=== PATIENT | male | born 1990 | race Caucasian/White ===

== ENCOUNTER → 2021-11-14 10:25 | Outpatient (BNVA) | payer BC, MEDICAID, SELFPAY | PROVIDERS: Family Provider Nurse Practitioner Family; Visit Provider Family Medicine | DX: Z76.89 Persons encountering health services in other specified circumstances (principal); G89.29 Other chronic pain; R10.9 Unspecified abdominal pain; K21.9 Gastro-esophageal reflux disease without esophagitis; F41.1 Generalized anxiety disorder; F41.0 Panic disorder [episodic paroxysmal anxiety] | CPT/HCPCS: 80053; 80061; 83036; 84443; 85025; 86140 ==

== ENCOUNTER 2021-11-16 08:08 | Emergency (ER) | payer BC, MEDICAID, SELFPAY ==
[2021-11-16 08:18] VITALS: BP 138/83; PULSE 69; RESP 14; TEMP 36.7; O2SAT 99; BMI 34.5
[2021-11-16 09:39] LABS: Basophils % 0.7 %; Eosinophils # 0.1 10^3/uL (0.0-0.8); Eosinophils % 1.1 %; Hematocrit 46.4 % (42.0-52.0); Hemoglobin 15.5 g/dL (11.7-16.6); Lymphocytes # 1.3 10^3/uL (0.8-4.8); Lymphocytes % 20.7 %; Mean Corpuscular HGB Conc 33.4 g/dL (30.0-36.0); Mean Corpuscular Hemoglobin 29.8 pg (28.0-34.0); Mean Corpuscular Volume 89.2 fl (80-94); Mean Platelet Volume 9.9 fL (7.4-10.4); Monocytes # 0.5 10^3/uL (0.2-0.9); Monocytes % 8.8 %; Neutrophils # 4.19 10^3/uL (1.8-7.7); Neutrophils % 68.4 %; Nucleated Red Blood Cells % 0 %; Platelet Count 242 10^3/cmm (130-400); Red Cell Distribution Width 12.3 % (12.1-15.1); White Blood Count 6.1 10^3/uL (4.0-10.0)
[2021-11-16 09:55] LABS: Alanine Aminotransferase 43 U/L (0-41); Albumin Level 4.7 g/dL (3.5-5.2); Alkaline Phosphatase 87 U/L (40-130); Anion Gap 16.1 (5-19); Aspartate Amino Transferase 24 U/L (0-40); Blood Urea Nitrogen 9 mg/dL (6-20); Calcium 10.1 mg/dL (8.5-10.5); Carbon Dioxide 24 mmol/L (22-29); Chloride 104 mmol/L (98-107); Globulin 2.6 g/dL (1.3-4.6); Glomerular Filtration Rate 88.3 mL/min (90-130); Glucose 90 mg/dL (65-115); Osmolality Calculated 288 mOsm/kg (285-295); Potassium 4.1 mmol/L (3.5-5.1); Sodium 140 mmol/L (136-145); Total Bilirubin 0.8 mg/dL (0.15-1.2); Total Protein 7.3 g/dL (6.6-8.7)
[2021-11-16 11:21] LABS: Add Urine Microscopic? NO; Charge for UA Resulting for Rev
--- NOTE | 2021-11-16 11:21 | ED_ITS ---
HPI - Dizziness General: Chief Complaint: Dizziness Stated Complaint: Weakness, Dizziness, N/V Time Seen by Provider: 11/16/21 08:15 Source: patient Mode of arrival: ambulatory History of Present Illness: HPI Narrative: 31-year-old male presents emergency room lightheadedness dizziness generally not feeling well. He felt very weak with nausea and vomiting started bupropion and escitalopram yesterday and this began suddenly after starting to take medications. His new medications to begin BuSpar buspirone 5 mg 3 times daily and escitalopram 5 mg daily. Denies any dysuria and frequency abdominal pain chest pain or shortness of breath. No falls no trauma. MD elicited complaint: dizziness and lightheadedness Onset (ago): hour(s) Timing: sudden onset Severity: moderate Context: change in medication History of similar symptoms: No Exacerbating factors: nothing Relieving factors: nothing Associated symptoms: Reports malaise and nausea; Denies change in hearing, chest pain, chills, cough, diaphoresis, ear discharge, ear pressure, fevers/chills, headache(s), nasal congestion, palpitations, rash, short of breath, syncope, tinnitus, vomiting or weakness Associated neuro symptoms: Deny confusion, difficulty speaking, dysphagia, diplopia, extremity weakness, facial numbness, facial weakness, gait changes, numbness in extremities or visual changes Review of Systems Const: Reports: malaise; Denies: fever(s), chills, fatigue or diaphoresis ENMT: Denies: throat pain, ear discharge, change in hearing, tinnitus or nasal congestion Card: Denies: chest pain, palpitations or syncope Resp: Denies: dyspnea, productive cough or non-productive cough GI: Reports: nausea; Denies: abdominal pain, vomiting or dysphagia : Denies: flank pain, difficulty urinating, dysuria, urinary frequency or ur inary urgency Musc: Denies: neck pain or back pain Skin/Breast: Denies: rash or pruritus Neuro: Denies: headache(s), numbness in extremities or confusion PFSH ED PFSH: Medical History Gastroesophageal reflux disease Nausea and vomiting Symptom of blood in vomit Family History Grandmother CAD (coronary artery disease) Cancer lung Diabetes Grandfather CAD (coronary artery disease) Cancer Lung disease Stroke Suicide Denies family history of Clotting disorder Dementia Hyperlipidemia Psychiatric illness Chronic kidney disease (CKD) Anesthesia complication Bleeding disorder Family history of premature coronary artery disease Hypertension Social History Smoking and tobacco status: never smoked Physical Exam Const: COMMON NORMALS: no acute distress GENERAL APPEARANCE: cooperative and comfortable ORIENTATION/CONSCIOUSNESS: Yes awake, Yes oriented to person, Yes oriented to place and Yes oriented to time HENMT: COMMON NORMALS: normocephalic, atraumatic, external ears normal, EAC's normal, TM's normal bilaterally and Normal nasal mucous membranes and turbinates present HEAD & SCALP: normocephalic and atraumatic NOSE: Normal nasal mucous membranes and turbinates present EXTERNAL EAR: Yes external ears normal EXTERNAL AUDITORY CANAL: EAC's normal TYMPANIC MEMBRANE: TM's normal bilaterally Eye: COMMON NORMALS: Equal, round and reactive pupils present, EOMs intact bilaterally, conjunctivae normal and no scleral icterus CONJUNCTIVA: Yes conjunctivae normal PUPIL: Yes Equal, round and reactive pupils present Lymph: LYMPHATIC: no lymphadenopathy noted and no lymphedema noted Resp: COMMON NORMALS: normal respiratory effort, No retractions, No use of accessory muscles and clear to auscultation bilaterally AUSCULTATION: clear to auscultation bilaterally Cardio: COMMON NORMALS: regular rate, regular rhythm and No murmurs present (Cardio) RATE: regular rate RHYTHM: regular rhythm GI: COMMON NORMALS: Soft to palpation and No hepatosplenomegaly present AUS CULTATION: Yes normoactive bowel sounds PALPATION: Yes Soft to palpation, No Tenderness to palpation present (GI), No Guarding due to palpation present (GI) and Yes No hepatosplenomegaly present Extremity: COMMON NORMALS: normal to inspection, capillary refill normal, no clubbing, cyanosis or edema, no calf tenderness and no pedal edema Neuro: SENSORIUM/ORIENTATION: Yes oriented to person, Yes oriented to place and Yes oriented to time Skin: COMMON NORMALS: no rashes or lesions noted GENERAL SKIN EXAM: no rashes or lesions noted Course Vital Signs: Vital signs: Vital Signs Temperature 98.2 F 11/16/21 12:25 Pulse Rate 68 11/16/21 12:25 Respiratory Rate 16 11/16/21 12:25 Blood Pressure 132/86 11/16/21 12:25 Pulse Oximetry 96 11/16/21 12:25 Oxygen Delivery Me thod 11/16/21 11:58 MDM - Dizziness Medical Decision Making Labs reviewed unremarkable exam unremarkable. Suspect his side effects of medication some decrease his medications to half tablet 3 times daily and the buspirone half tablet daily and escitalopram after 1 week increase to full tablet follow-up with primary care Medical Records I reviewed the patient's medical records. Lab Data I reviewed the patient's lab results. : 11/16/21 09:18 11/16/21 09:18 Laboratory Results WBC 6.1 10^3/uL (4.0-10.0) 11/16/21 09:18 RBC 5.20 10^6/uL (4.1-5.3) 11/16/21 09:18 Hgb 15.5 g/dL (11.7-16.6) 11/16/21 09:18 Hct 46.4 % (42.0-52.0) 11/16/21 09:18 MCV 89.2 fl (80-94) 11/16/21 09:18 MCH 29.8 pg (28.0-34.0) 11/16/21 09:18 MCHC 33.4 g/dL (30.0-36.0) 11/16/21 09:18 RDW 12.3 % (12.1-15.1) 11/16/21 09:18 Plt Count 242 10^3/cmm (130-400) 11/16/21 09:18 MPV 9.9 fL (7.4-10.4) 11/16/21 09:18 Neut % (Auto) 68.4 % 11/16/21 09:18 Lymph % (Auto) 20.7 % 11/16/21 09:18 [place] % (Auto) 8.8 % 11/16/21 09:18 Eos % (Auto) 1.1 % 11/16/21 09:18 Baso % (Auto) 0.7 % 11/16/21 09:18 Neut # (Auto) 4.19 10^3/uL (1.8-7.7) 11/16/21 09:18 Lymph # (Auto) 1.3 10^3/uL (0.8-4.8) 11/16/21 09:18 [place] # (Auto) 0.5 10^3/uL (0.2-0.9) 11/16/21 09:18 Eos # (Auto) 0.1 10^3/uL (0.0-0.8) 11/16/21 09:18 Baso # (Auto) 0.0 10^3/uL (0.0-0.1) 11/16/21 09:18 Nucleated RBC % (auto) 0 % 11/16/21 09:18 Nucleated RBCs # 0.0 /100WBC 11/16/21 09:18 Sodium 140 mmol/L (136-145) 11/16/21 09:18 Potassium 4.1 mmol/L (3.5-5.1) 11/16/21 09:18 Chloride 104 mmol/L (98-107) 11/16/21 09:18 Carbon Dioxide 24 mmol/L (22-29) 11/16/21 09:18 Anion Gap 16.1 (5-19) 11/16/21 09:18 BUN 9 mg/dL (6-20) 11/16/21 09:18 Creatinine 1.0 mg/dL (0.7-1.2) 11/16/21 09:18 GFR Calculation 88.3 mL/min (90-130) L 11/16/21 09:18 Glucose 90 mg/dL (65-115) 11/16/21 09:18 Calculated Osmolality 288 mOsm/kg (285-295) 11/16/21 09:18 Calcium 10.1 mg/dL (8.5-10.5) 11/16/21 09:18 Total Bilirubin 0.8 mg/dL (0.15-1.2) 11/16/21 09:18 AST 24 U/L (0-40) 11/16/21 09:18 ALT 43 U/L (0-41) H 11/16/21 09:18 Alkaline Phosphatase 87 U/L (40-130) 11/16/21 09:18 Total Protein 7.3 g/dL (6.6-8.7) 11/16/21 09:18 Albumin 4.7 g/dL (3.5-5.2) 11/16/21 09:18 Globulin 2.6 g/dL (1.3-4.6) 11/16/21 09:18 Urine Color Yellow (Yellow) 11/16/21 11:07 Urine Appearance Clear (CLEAR) 11/16/21 11:07 Urine pH 9 (5-7) H 11/16/21 11:07 Ur Specific [employer] [place] 1.015 (1.005-1.030) 11/16/21 11:07 Urine Protein Neg (Negative) 11/16/21 11:07 Urine Glucose (UA) Norm (Normal) 11/16/21 11:07 Urine Ketones 3+ (Negative) H 11/16/21 11:07 Urine Blood Neg (Negative) 11/16/21 11:07 Urine Nitrate Negative (Negative) 11/16/21 11:07 Urine Bilirubin Neg (Negative) 11/16/21 11:07 Prot Sulfosalicylic Acd Negative (Negative) 11/16/21 11:07 Urine Urobilinogen 1 mg/dL (Negative) H 11/16/21 11:07 Ur Leukocyte Esterase Negative (Negative) 11/16/21 11:07 Discharge Plan Discharge Patient Disposition: Home Clinical Impression: Medication side effect Condition: Stable Prescriptions: New ondansetron HCl 4 mg tablet 4 mg PO Q6H PRN (Reason: nausea and vomiting) Qty: 20 0RF No Action omeprazole 20 mg tablet,delayed release (DR/EC) 20 mg PO DAILY Qty: 30 3RF ondansetron 4 mg tablet,disintegrating 4 mg PO Q8H PRN (Reason: nausea and vomiting) Qty: 5 0RF buspirone 5 mg tablet 5 mg PO TID Qty: 60 1RF pantoprazole 40 mg tablet,delayed release (DR/EC) 40 mg PO BID Qty: 60 2RF escitalopram oxalate [Lexapro] 5 mg tablet 5 mg PO DAILY Qty: 30 2RF tramadol 50 mg tablet 50 mg PO BID PRN (Reason: pain) 7 Days Qty: 14 0RF Discharge Orders: Discharge ED (Routine); Ordered 11/16/21 Ordered By: Arturo Lenz Referrals: Flaco Rucker DO [Primary Care Provider] - Discharge Diet: Usual diet Discharge Activity: Resume usual activity Activity Restrictions/Additional Instructions: Take half strength doses of the buspirone and the escitalopram for 6 to 7 days then increase to full strength doses. Follow-up with your primary care doctor within the next few weeks if symptoms persist otherwise follow-up as planned previously scheduled. 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
[2021-11-16 11:41] LABS: Blood Urine Neg (Negative); Glucose Urine UA Norm (Normal); Ketones Urine 3+ (Negative); Protein Urine Neg (Negative); Specific Gravity, Urine 1.015 (1.005-1.030); Urine Appearance Clear (CLEAR); Urine Color Yellow (Yellow); pH Urine 9 (5-7)
[2021-11-16 11:42] LABS: Bilirubin Urine Neg (Negative); Leukocyte Esterase Urine Negative (Negative); Nitrate Urine Negative (Negative); Sulfosalicylic Acid Urine Negative (Negative); Urobilinogen Urine 1 mg/dL (Negative)
[2021-11-16] MEDS: lactated ringers 1,000 ML 999 ML IV (11:50)
[2021-11-16] MEDS: ondansetron 2 mg/ML SDV 2 mL 4 MG IVP (11:50)
[2021-11-16 11:58] VITALS: BP 137/97; PULSE 59; RESP 17; O2SAT 100
[2021-11-16 12:25] VITALS: BP 132/86; PULSE 68; RESP 16; TEMP 36.8; O2SAT 96
== END 2021-11-16 12:34 | disposition home or self-care (01) ==
PROVIDERS: Emergency Provider Family Medicine; PCP Family Medicine
DX: R42 Dizziness and giddiness (principal); R53.1 Weakness; R11.2 Nausea with vomiting, unspecified; R53.81 Other malaise; T50.905A Adverse effect of unspecified drugs, medicaments and biological substances, initial encounter
CPT/HCPCS: 80053; 81003; 85025; 96374; 99284; J2405

== ENCOUNTER → 2022-06-30 14:45 | Outpatient (BNVA) | payer BC, MEDICAID, SELFPAY | PROVIDERS: PCP Family Medicine; Visit Provider Nurse Practitioner | DX: S99.921A Unspecified injury of right foot, initial encounter (principal); X58.XXXA Exposure to other specified factors, initial encounter | CPT/HCPCS: 73630 ==

== ENCOUNTER 2022-09-06 05:50 | Emergency (ER) | payer BC, SELFPAY ==
[2022-09-06 05:54] VITALS: PULSE 77; RESP 20; TEMP 37.2; O2SAT 98; BMI 31.1
--- NOTE | 2022-09-06 05:55 | ECG_ITS ---
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 Measurements Intervals [place] Rate: 67 P: 23 MN: 120 QRS: 22 QRSD: 110 T: 32 QT: 368 QTc: 390 Interpretive Statements SINUS RHYTHM No previous ECG available for comparison Electronically Signed On 09-06-2022 16:51:17 CDT by Terrell Reaves M.D. [id number]
[2022-09-06 05:57] VITALS: O2SAT 95
--- NOTE | 2022-09-06 05:57 | XRR_ITS ---
PROCEDURE INFORMATION: Exam: XR Chest Exam date and time: 09/06/2022 6:09 AM Age: 32 years old Clinical indication: Dyspnea; Additional info: Dyspnea/cough TECHNIQUE: Imaging protocol: Radiologic exam of the chest. Views: 1 view. COMPARISON: CR XR chest 1V [id number] 05/20/2018 2:26 PM FINDINGS: Lungs: Unremarkable. No consolidation. Pleural spaces: Unremarkable. No pleural effusion. No pneumothorax. Heart/Mediastinum: Unremarkable. No cardiomegaly. Bones/joints: Unremarkable. XR/XR chest 1V portable [id number] IMPRESSION: No acute findings.
--- NOTE | 2022-09-06 05:57 | W.ED.CHESTPA ---
HPI - Chest Pain General: Chief Complaint: Chest Pain Stated Complaint: cp Time Seen by Provider: 09/06/22 05:56 Source: patient Mode of arrival: ambulatory History of Present Illness: 32-year-old male presents to the emergency room complaining of chest pain intermittently for the last couple of days. Started to get worse yesterday around noon and is persisted. Intermittently comes in spasm-like episodes that can be reproduced with palpation on the chest. He denies any hematochezia or melena. He does report some nausea associated with it. He has no known cardiac history he has significant problems with reflux in the past he went to the point of having small amounts of hemoptysis in the past but its been sometime since he has had that none recently. He is on pantoprazole. He also uses THC oil regularly. MD complaint: chest discomfort Onset (ago): day(s) Timing of current episode: episodic Prior episodes: Yes Onset: during rest Pain location: left chest Pain radiation: back Severity: mild Quality: sharp Relieving factors: nothing Exacerbating factors: palpation Associated symptoms: Reports nausea; Deny abdominal pain, diaphoresis, dyspnea, fever(s), leg edema, palpitations, sense of impending doom, syncope or vomiting Treatment prior to arrival: none Review of Systems Const: Denies: fever(s) or diaphoresis ENMT: Denies: throat pain, ear or mastoid pain, nasal discharge or nasal congestion Card: Denies: palpitations or syncope Resp: Denies: dyspnea, productive cough or non-productive cough GI: Reports: nausea; Denies: abdominal pain or vomiting : Denies: flank pain, dysuria, urinary frequency or urinary urgency Musc: Reports: back pain; Denies: neck pain or extremity pain Skin/Breast: Denies: rash or pruritus Psych: Reports: anxiety PFSH ED PFSH: Medical History Gastroesophageal reflux disease Nausea and vomiting Symptom of blood in vomit Family History Grandmother CAD (coronary artery disease) Cancer lung Diabetes Grandfather CAD (coronary artery disease) Cancer Lung disease Stroke Suicide Denies family history of Clotting disorder Dementia Hyperlipidemia Psychiatric illness Chronic kidney disease (CKD) Anesthesia complication Bleeding disorder Family history of premature coronary artery disease Hypertension Social History Smoking and tobacco status: never smoked Smoking risk assessment/counseling performed?: No Alcohol intake: never Desire information about alcohol rehabilitation?: No Counseling given: No Substance/Drug Use: never Desire information about substance/drug rehabilitation?: No Counseling given: No Physical Exam Const: GENERAL APPEARANCE: cooperative and comfortable ORIENTATION/CONSCIOUSNESS: Yes awake, Yes oriented to person, Yes oriented to place and Yes oriented to time HENMT: COMMON NORMALS: normocephalic, atraumatic and hearing grossly normal bilaterally HEAD & SCALP: normocephalic and atraumatic Resp: COMMON NORMALS: normal respiratory effort, No retractions, No use of accessory muscles and clear to auscultation bilaterally AUSCULTATION: clear to auscultation bilaterally Cardio: COMMON NORMALS: regular rate, regular rhythm and No murmurs present (Cardio) RATE: regular rate RHYTHM: regular rhythm GI: COMMON NORMALS: Soft to palpation and No hepatosplenomegaly present AUSCULTATION: Yes normoactive bowel sounds PALPATION: Yes Soft to palpation, No Tenderness to palpation present (GI), No Guarding due to palpation present (GI) and Yes No hepatosplenomegaly present Extremity: COMMON NORMALS: normal to inspection, capillary refill normal, no clubbing, cyanosis or edema, no calf tenderness and no pedal edema Neuro: SENSORIUM/ORIENTATION: Yes oriented to person, Yes oriented to place and Yes oriented to time Skin: COMMON NORMALS: no rashes or lesions noted GENERAL SKIN EXAM: no rashes or lesions noted Course Vital Signs: Vital signs: Vital Signs Temperature 99.0 F 09/06/22 05:54 Pulse Rate 60 09/06/22 06:05 Respiratory Rate 20 H 09/06/22 05:54 Blood Pressure 129/73 09/06/22 06:05 Pulse Oximetry 98 09/06/22 06:05 Oxygen Delivery Me thod Room Air 09/06/22 06:05 MDM - Chest Pain Medical Decision Making Improvement with a GI cocktail. Reviewed labs and EKG no acute findings on EKG no ST elevation. Normal sinus rhythm. Patient admits to being stressed out recently. His symptoms sound more GI in nature he has not no significant cardiac risk factors. He has had this for several days EKG and troponin are negative. Discharge patient home add Carafate 1 every 6 hours as needed. Patient given handout information on reflux as well as appropriate diet modifications. Patient also confirmed he has been using THC oil. Number of the cannabis products can worsen GI symptoms. Recommend that he abstain from that completely. Follow-up with his primary care doctor return for worsening problems. Medical Records I reviewed the patient's medical records. Lab Data I reviewed the patient's lab results. 09/06/22 06:03 09/06/22 06:03 Laboratory Results WBC 6.9 10^3/uL (4.0-10.0) 09/06/22 06:03 RBC 4.86 10^6/uL (4.1-5.3) 09/06/22 06:03 Hgb 14.6 g/dL (11.7-16.6) 09/06/22 06:03 Hct 44.6 % (42.0-52.0) 09/06/22 06:03 MCV 91.8 fl (80-94) 09/06/22 06:03 MCH 30.0 pg (28.0-34.0) 09/06/22 06:03 MCHC 32.7 g/dL (30.0-36.0) 09/06/22 06:03 RDW 13.5 % (12.1-15.1) 09/06/22 06:03 Plt Count 221 10^3/cmm (130-400) 09/06/22 06:03 MPV 9.3 fL (7.4-10.4) 09/06/22 06:03 Neut % (Auto) 55.7 % 09/06/22 06:03 Lymph % (Auto) 30.2 % 09/06/22 06:03 [place] % (Auto) 8.8 % 09/06/22 06:03 Eos % (Auto) 4.3 % 09/06/22 06:03 Baso % (Auto) 0.7 % 09/06/22 06:03 Neut # (Auto) 3.84 10^3/uL (1.8-7.7) 09/06/22 06:03 Lymph # (Auto) 2.1 10^3/uL (0.8-4.8) 09/06/22 06:03 [place] # (Auto) 0.6 10^3/uL (0.2-0.9) 09/06/22 06:03 Eos # (Auto) 0.3 10^3/uL (0.0-0.8) 09/06/22 06:03 Baso # (Auto) 0.1 10^3/uL (0.0-0.1) 09/06/22 06:03 Nucleated RBC % (auto) 0 % 09/06/22 06:03 Nucleated RBCs # 0.0 /100WBC 09/06/22 06:03 Sodium 139 mmol/L (136-145) 09/06/22 06:03 Potassium 3.7 mmol/L (3.5-5.1) 09/06/22 06:03 Chloride 104 mmol/L (98-107) 09/06/22 06:03 Carbon Dioxide 26 mmol/L (22-29) 09/06/22 06:03 Anion Gap 12.7 (5-19) 09/06/22 06:03 BUN 14 mg/dL (6-20) 09/06/22 06:03 Creatinine 0.9 mg/dL (0.7-1.2) 09/06/22 06:03 GFR Calculation 99.1 mL/min (90-130) 09/06/22 06:03 Glucose 83 mg/dL (65-115) 09/06/22 06:03 Calculated Osmolality 288 mOsm/kg (285-295) 09/06/22 06:03 Calcium 9.4 mg/dL (8.5-10.5) 09/06/22 06:03 Total Bilirubin 0.5 mg/dL (0.15-1.2) 09/06/22 06:03 AST 20 U/L (0-40) 09/06/22 06:03 ALT 19 U/L (0-41) 09/06/22 06:03 Alkaline Phosphatase 73 U/L (40-130) 09/06/22 06:03 Troponin T Baseline 6 ng/L (0-15) 09/06/22 06:03 Total Protein 6.7 g/dL (6.6-8.7) 09/06/22 06:03 Albumin 4.4 g/dL (3.5-5.2) 09/06/22 06:03 Globulin 2.3 g/dL (1.3-4.6) 09/06/22 06:03 Discharge Plan Discharge Patient Disposition: Home Clinical Impression: Gastroesophageal reflux disease, Atypical chest pain Condition: Stable Prescriptions: New Carafate 1 gram tablet 1 g PO Q6H PRN (Reason: stomach upset) Qty: 40 0RF No Action THC oil PO escitalopram oxalate 20 mg tablet 20 mg PO DAILY Qty: 90 1RF buspirone 5 mg tablet 5 mg PO TID Qty: 90 2RF pantoprazole 40 mg tablet,delayed release (DR/EC) 40 mg PO BID Qty: 60 2RF quetiapine [Seroquel] 50 mg tablet 50 mg PO DAILY Qty: 30 2RF Discharge Orders: Discharge ED (Routine); Ordered 09/06/22 Ordered By: Arturo Lenz Referrals: Flaco Rucker DO [Primary Care Provider] - Discharge Diet: As Directed Discharge Activity: Resume usual activity Patient Instructions: Diet for Stomach Ulcers and Gastritis (ED), GERD (Gastroesophageal Reflux Disease) (ED), Opioid Safety, Pain Management Stand Alone Forms: Work/School Release Coding Level of Care Code ED Medicare Sales Executive for Mitzi Carrizales
[2022-09-06 06:05] VITALS: BP 129/73; PULSE 60; O2SAT 98
[2022-09-06 06:07] LABS: Basophils # 0.1 10^3/uL (0.0-0.1); Basophils % 0.7 %; Eosinophils # 0.3 10^3/uL (0.0-0.8); Eosinophils % 4.3 %; Hematocrit 44.6 % (42.0-52.0); Hemoglobin 14.6 g/dL (11.7-16.6); Lymphocytes # 2.1 10^3/uL (0.8-4.8); Lymphocytes % 30.2 %; Mean Corpuscular HGB Conc 32.7 g/dL (30.0-36.0); Mean Corpuscular Volume 91.8 fl (80-94); Mean Platelet Volume 9.3 fL (7.4-10.4); Monocytes # 0.6 10^3/uL (0.2-0.9); Monocytes % 8.8 %; Neutrophils # 3.84 10^3/uL (1.8-7.7); Neutrophils % 55.7 %; Nucleated Red Blood Cells % 0 %; Platelet Count 221 10^3/cmm (130-400); Red Blood Count 4.86 10^6/uL (4.1-5.3); Red Cell Distribution Width 13.5 % (12.1-15.1); White Blood Count 6.9 10^3/uL (4.0-10.0)
[2022-09-06] MEDS: alum-mag-hydroxide-sime 30 mL UDC PO (06:11)
[2022-09-06] MEDS: sucralfate 1 gm/10 mL Oral Liq UDC PO (06:11)
[2022-09-06 06:34] LABS: Alanine Aminotransferase 19 U/L (0-41); Albumin Level 4.4 g/dL (3.5-5.2); Alkaline Phosphatase 73 U/L (40-130); Anion Gap 12.7 (5-19); Aspartate Amino Transferase 20 U/L (0-40); Blood Urea Nitrogen 14 mg/dL (6-20); Calcium 9.4 mg/dL (8.5-10.5); Carbon Dioxide 26 mmol/L (22-29); Chloride 104 mmol/L (98-107); Creatinine Clr Calc Pharmacy 149.8757; Globulin 2.3 g/dL (1.3-4.6); Glomerular Filtration Rate 99.1 mL/min (90-130); Glucose 83 mg/dL (65-115); Osmolality Calculated 288 mOsm/kg (285-295); Potassium 3.7 mmol/L (3.5-5.1); Sodium 139 mmol/L (136-145); Total Bilirubin 0.5 mg/dL (0.15-1.2); Total Protein 6.7 g/dL (6.6-8.7)
[2022-09-06 06:35] LABS: Troponin(5th) Baseline 6 ng/L (0-15)
[2022-09-06 06:43] VITALS: BP 118/80; PULSE 86; RESP 20; O2SAT 99
[2022-09-06 06:44] VITALS: BP 118/80; PULSE 70; RESP 18; O2SAT 98
== END 2022-09-06 06:51 | disposition home or self-care (01) ==
PROVIDERS: Emergency Provider Family Medicine; PCP Family Medicine
DX: K21.9 Gastro-esophageal reflux disease without esophagitis (principal); R07.89 Other chest pain; Z79.899 Other long term (current) drug therapy
CPT/HCPCS: 71045; 80053; 84484; 85025; 93005; 99285

== ENCOUNTER → 2023-09-25 12:24 | Outpatient (BNVA) | payer SELFPAY | PROVIDERS: PCP Family Medicine; Visit Provider Family Medicine | DX: E55.9 Vitamin D deficiency, unspecified (principal); K52.9 Noninfective gastroenteritis and colitis, unspecified; K21.9 Gastro-esophageal reflux disease without esophagitis; R11.2 Nausea with vomiting, unspecified; F41.1 Generalized anxiety disorder; F41.0 Panic disorder [episodic paroxysmal anxiety] | CPT/HCPCS: 80053; 80061; 82306; 82533; 83036; 84443; 85025; 85651; 86003; 86008; 86140 ==

== ENCOUNTER 2023-09-26 06:58 | Emergency (ER) | payer SELFPAY ==
[2023-09-26 07:14] VITALS: BP 133/91; PULSE 78; RESP 18; TEMP 36.7; O2SAT 98
--- NOTE | 2023-09-26 07:41 | ED_ITS ---
HPI - Nausea/Vomiting/Diarrhea 2 General: Chief complaint: Nausea/Vomiting/Diarrhea Stated complaint: n/v weakness Time Seen by Provider: 09/26/23 07:01 History of Present Illness: 33-year-old [facility] and weakness. Had an episode of diarrhea this morning. He noticed some bright red blood in the emesis enough he says almost completely discolored in the toilet bowl. He denies any coffee-ground emesis denies any melena. He has not previously had significant upper GI bleed but has vomited blood in the past. The symptoms been going on for some time. He has seen Dr. Isaac yesterday in the office had lab work done. He will intermittently have appetite loss and early to some satiety. No recent medication changes medication list was reviewed. Does occasionally drink social amounts of alcohol, uses THC oil occasionally. He has not had any further hematemesis since the episode this morning. Labs from 09/24 reviewed. Associated nausea: Yes Associated symtoms: Reports nausea; Denies chest pain or dysuria Review of Systems 2 Const: Denies: fever(s) or chills Card: Denies: chest pain Resp: Denies: dyspnea GI: Reports: nausea, vomiting, hematemesis and diarrhea; Denies: abdominal pain, hematochezia or melena : Denies: dysuria, urinary frequency or urinary urgency Musc: Denies: neck pain or back pain Skin/Breast: Denies: rash PFSH ED 2 PFSH: Medical History Nausea and vomiting Symptom of blood in vomit Gastroesophageal reflux disease Family History Grandmother CAD (coronary artery disease) Cancer lung Diabetes Grandfather CAD (coronary artery disease) Cancer Lung disease Stroke Suicide Denies family history of Clotting disorder Dementia Hyperlipidemia Psychiatric illness Chronic kidney disease (CKD) Anesthesia complication Bleeding disorder Family history of premature coronary artery disease Hypertension Social History Smoking and tobacco/nicotine status: never used tobacco/nicotine Alcohol intake: never Substance/Drug Use: never Physical Exam 2 Const: GENERAL APPEARANCE: cooperative and comfortable O RIENTATION/CONSCIOUSNESS: Yes awake, Yes oriented to person, Yes oriented to place and Yes oriented to time HENMT: COMMON NORMALS: normocephalic, atraumatic and hearing grossly normal bilaterally HEAD & SCALP: normocephalic and atraumatic Resp: COMMON NORMALS: normal respiratory effort, No retractions, No use of accessory muscles and clear to auscultation bilaterally AUSCULTATION: clear to auscultation bilaterally Cardio: COMMON NORMALS: regular rate, regular rhythm and No murmurs present (Cardio) RATE: regular rate RHYTHM: regular rhythm GI: COMMON NORMALS: Soft to palpation and No hepatosplenomegaly present A USCULTATION: Yes normoactive bowel sounds PALPATION: Yes Soft to palpation, No Tenderness to palpation present (GI), No Guarding due to palpation present (GI) and Yes No hepatosplenomegaly present Extremity: COMMON NORMALS: normal to inspection, capillary refill normal, no clubbing, cyanosis or edema, no calf tenderness and no pedal edema Neuro: SENSORIUM/ORIENTATION: Yes oriented to person, Yes oriented to place and Yes oriented to time Skin: COMMON NORMALS: no rashes or lesions noted GENERAL SKIN EXAM: no rashes or lesions noted Course 2 Vital Signs: Vital signs: Vital Signs Temperature 98.1 F 09/26/23 07:14 Pulse Rate 71 09/26/23 09:47 Respiratory Rate 18 09/26/23 07:14 Blood Pressure 134/93 09/26/23 09:47 Pulse Oximetry 99 09/26/23 09:47 Oxygen Delivery Me thod Room Air 09/26/23 09:47 MDM - Nausea/Vomiting/Diarrhea Medical Decision Making Labs and imaging reviewed no evidence of acute bleeding labs hemoglobin stable BUN normal has not had any further hematemesis here. Will discharge [facility] continue pantoprazole add sucralfate have him follow-up with his primary care doctor needs referral for potential EGD. Medical Records I reviewed the patient's medical records. Lab Data I reviewed the patient's lab results. 09/26/23 07:39 09/26/23 07:39 Radiology Impressions Abdomen/Pelvis CT 09/26/23 07:46 IMPRESSION: 1. Mild hepatomegaly diffuse fatty infiltration of the liver. 2. Small esophageal hiatal hernia. Stomach is otherwise normal in appearance. Normal visualized proximal duodenum. 3. No hydronephrosis in either kidney. 4. Normal appendix 5. No other acute findings. Laboratory Results WBC 4.26 10^3/uL (3.29-11.43) 09/26/23 07:39 RBC 4.79 10^6/uL (3.85-5.65) 09/26/23 07:39 Hgb 14.60 g/dL (11.27-16.99) 09/26/23 07:39 Hct 44.6 % (37-53) 09/26/23 07:39 MCV 93.1 fl (82-101) 09/26/23 07:39 MCH 30.5 pg (27-33) 09/26/23 07:39 MCHC 32.7 g/dL (30-55) 09/26/23 07:39 RDW 13.1 % (12.1-15.1) 09/26/23 07:39 Plt Count 224 10^3/cmm (157-399) 09/26/23 07:39 MPV 10.0 fL (7.4-10.4) 09/26/23 07:39 Neut % (Auto) 48.4 % 09/26/23 07:39 Lymph % (Auto) 35.4 % 09/26/23 07:39 [place] % (Auto) 9.2 % 09/26/23 07:39 Eos % (Auto) 6.1 % 09/26/23 07:39 Baso % (Auto) 0.7 % 09/26/23 07:39 Neut # (Auto) 2.06 10^3/uL (1.8-7.7) 09/26/23 07:39 Lymph # (Auto) 1.5 10^3/uL (0.8-4.8) 09/26/23 07:39 [place] # (Auto) 0.4 10^3/uL (0.2-0.9) 09/26/23 07:39 Eos # (Auto) 0.3 10^3/uL (0.0-0.8) 09/26/23 07:39 Baso # (Auto) 0.0 10^3/uL (0.0-0.1) 09/26/23 07:39 Nucleated RBC % (auto) 0 % 09/26/23 07:39 Nucleated RBCs # 0.0 /100WBC 09/26/23 07:39 Sodium 142 mmol/L (136-145) 09/26/23 07:39 Potassium 4.6 mmol/L (3.5-5.1) 09/26/23 07:39 Chloride 108 mmol/L (98-107) H 09/26/23 07:39 Carbon Dioxide 22 mmol/L (22-29) 09/26/23 07:39 Anion Gap 16.6 (5-19) 09/26/23 07:39 BUN 10 mg/dL (6-20) 09/26/23 07:39 Creatinine 0.7 mg/dL (0.7-1.2) 09/26/23 07:39 GFR Calculation 131.5 mL/min (90-130) H 09/26/23 07:39 Glucose 102 mg/dL (65-115) 09/26/23 07:39 Calculated Osmolality 293 mOsm/kg (285-295) 09/26/23 07:39 Calcium 9.0 mg/dL (8.5-10.5) 09/26/23 07:39 Total Bilirubin 0.3 mg/dL (0.15-1.2) 09/26/23 07:39 AST 27 U/L (0-40) 09/26/23 07:39 ALT 31 U/L (0-41) 09/26/23 07:39 Alkaline Phosphatase 78 U/L (40-130) 09/26/23 07:39 Total Protein 7.1 g/dL (6.6-8.7) 09/26/23 07:39 Albumin 4.3 g/dL (3.5-5.2) 09/26/23 07:39 Globulin 2.8 g/dL (1.3-4.6) 09/26/23 07:39 Lipase 29 U/L (13-60) 09/26/23 07:39 Urine Color Yellow (Yellow) 09/26/23 08:18 Urine Appearance Clear (CLEAR) 09/26/23 08:18 Urine pH >=9.0 (5-7) A 09/26/23 08:18 Ur Specific [place] 1.037 (1.005-1.030) H 09/26/23 08:18 Urine Protein Negative (Negative) 09/26/23 08:18 Urine Glucose (UA) Negative (Normal) 09/26/23 08:18 Urine Ketones Negative (Negative) 09/26/23 08:18 Urine Blood Negative (Negative) 09/26/23 08:18 Urine Nitrate Negative (Negative) 09/26/23 08:18 Urine Bilirubin Negative (Negative) 09/26/23 08:18 Urine Urobilinogen 1.0 mg/dL (Negative) 09/26/23 08:18 Ur Leukocyte Esterase Negative (Negative) 09/26/23 08:18 Amorphous Sediment Not Reportable 09/26/23 08:18 All radiology interpretation(s) finalized by discharge Discharge Plan Discharge Patient Disposition: Home Clinical Impression: Symptom of blood in vomit, Gastroesophageal reflux disease, Dehydration, Chronic abdominal pain Condition: Stable Prescriptions: New sucralfate 1 gram tablet 1 g PO Q6H 28 Days Qty: 112 0RF No Action lorazepam 0.5 mg tablet 0.5 mg PO DAILY PRN (Reason: anxiety) Qty: 20 5RF buspirone 5 mg tablet 5 mg PO TID Seroquel 100 mg tablet 100 mg PO BEDTIME pantoprazole 40 mg tablet,delayed release (DR/EC) 40 mg PO BID escitalopram oxalate 20 mg tablet 20 mg PO DAILY Discharge Orders: Discharge ED (Routine); Ordered 09/26/23 Ordered By: Arturo Lenz Referrals: Flaco Rucker DO [Primary Care Provider] - Discharge Diet: As Directed Discharge Activity: Increase activity as tolerated Patient Instructions: Diet for Stomach Ulcers and Gastritis (ED), GERD (Gastroesophageal Reflux Disease) (ED), Abdominal Pain (ED), Opioid Safety, Pain Management Activity Restrictions/Additional Instructions: Thank you for choosing [facility] for your healthcare needs today. It is very important that you follow up as instructed or that you return to the Emergency Department should you have concerns or if your condition changes or worsens in any way. You were seen today with complaints of nausea vomiting with blood in the vomitus. There is no sign of active bleeding on the CT and your hemoglobin and other labs do not show evidence of acute bleeding. Recommend you continue your Protonix 1 pill twice a day add sucralfate 1 tablet 4 times a day. Case management make arrangements for you to follow-up with general surgery for an EGD Coding Level of Care Code ED Software Systems Analyst for Mitzi Carrizales
[2023-09-26] MEDS: ondansetron 2 mg/ML SDV 2 mL 4 MG IVP (07:42)
[2023-09-26] MEDS: sodium chloride 0.9% 1,000 ML 999 ML IV ×2 (07:42→08:36)
[2023-09-26 07:44] VITALS: BP 149/105; PULSE 77; O2SAT 96
--- NOTE | 2023-09-26 07:46 | CT_ITS ---
WS: [id number] CT ABDOMEN PELVIS TECHNIQUE: Contrast-enhanced CT of the abdomen and pelvis with coronal and sagittal reformatted image s. CLINICAL INFORMATION: Hematemesis COMPARISON: CT 2006 DLP: 1230.[address] scans at [facility] use at least one of these dose optimization techniques: automated e xposure control; mA and/or kV adjustment per patient size (includes targeted exams where dose is matc hed to clinical indication); or iterative reconstruction. FINDINGS: Diffuse fatty infiltration of the liver. Mild hepatomegaly. Normal spleen. Lung bases are well aerate d. Normal gallbladder. Small esophageal hiatal hernia. Stomach is normal in appearance. Fluid within the stomach. Normal-appearing proximal duodenum. Fatty atrophy of the pancreas. Normal portal vein an d splenic vein. Celiac and SMA are patent. Adrenal glands are normal. No hydronephrosis in either kidney. Normal renal parenchymal enhancement. Normal sigmoid colon. No evidence of small or large bowel obstruction. Normal appendix. Small fat-con taining umbilical hernia. No free fluid in the abdomen or pelvis. CT/CT abdomen pelvis w con* [id number] IMPRESSION: 1. Mild hepatomegaly diffuse fatty infiltration of the liver. 2. Small esophageal hiatal hernia. Stomach is otherwise normal in appearance. Normal visualized proximal duodenum. 3. No hydronephrosis in either kidney. 4. Normal appendix 5. No other acute findings.
[2023-09-26] MEDS: pantoprazole 40 mg SDV 80 MG IVP (07:48)
[2023-09-26 07:58] LABS: Basophils % 0.7 %; Eosinophils # 0.3 10^3/uL (0.0-0.8); Eosinophils % 6.1 %; Hematocrit 44.6 % (37-53); Lymphocytes # 1.5 10^3/uL (0.8-4.8); Lymphocytes % 35.4 %; Mean Corpuscular HGB Conc 32.7 g/dL (30-55); Mean Corpuscular Hemoglobin 30.5 pg (27-33); Mean Corpuscular Volume 93.1 fl (82-101); Monocytes # 0.4 10^3/uL (0.2-0.9); Monocytes % 9.2 %; Neutrophils # 2.06 10^3/uL (1.8-7.7); Neutrophils % 48.4 %; Nucleated Red Blood Cells % 0 %; Platelet Count 224 10^3/cmm (157-399); Red Blood Count 4.79 10^6/uL (3.85-5.65); Red Cell Distribution Width 13.1 % (12.1-15.1); White Blood Count 4.26 10^3/uL (3.29-11.43)
[2023-09-26 08:03] LABS: Alanine Aminotransferase 31 U/L (0-41); Albumin Level 4.3 g/dL (3.5-5.2); Alkaline Phosphatase 78 U/L (40-130); Blood Urea Nitrogen 10 mg/dL (6-20); Carbon Dioxide 22 mmol/L (22-29); Chloride 108 mmol/L (98-107); Creatinine Clr Calc Pharmacy 202.7175; Globulin 2.8 g/dL (1.3-4.6); Glomerular Filtration Rate 131.5 mL/min (90-130); Glucose 102 mg/dL (65-115); Lipase 29 U/L (13-60); Osmolality Calculated 293 mOsm/kg (285-295); Sodium 142 mmol/L (136-145); Total Bilirubin 0.3 mg/dL (0.15-1.2); Total Protein 7.1 g/dL (6.6-8.7)
[2023-09-26 08:12] LABS: Anion Gap 16.6 (5-19); Aspartate Amino Transferase 27 U/L (0-40); Potassium 4.6 mmol/L (3.5-5.1)
[2023-09-26] MEDS: iohexol 350 mg/mL 500 mL Btl (per mL) IV (08:18)
[2023-09-26 08:55] LABS: Charge for UA Resulting for Rev
[2023-09-26 08:58] LABS: Bilirubin Urine Negative (Negative); Blood Urine Negative (Negative); Glucose Urine UA Negative (Normal); Ketones Urine Negative (Negative); Leukocyte Esterase Urine Negative (Negative); Nitrate Urine Negative (Negative); Protein Urine Negative (Negative); Urine Appearance Clear (CLEAR); Urine Color Yellow (Yellow); pH Urine >=9.0 (5-7)
[2023-09-26 09:06] LABS: Specific Gravity, Urine 1.037 (1.005-1.030)
--- NOTE | 2023-09-26 09:13 | PC.PHAR ---
PT HAS BUSPIRONE 5MG 3 TIMES DAILY-02/12/23 30DS, ESCITALOPRAM 20MG ONCE DAILY-08/11/23 90DS, LORAZEPAM 0.5MGONCE DAILY NEEDED 10/16/22 30DS ALL ON FILE AND STATES STILL HAS SOME OF EACH AND TAKES NEEDED.
[2023-09-26 09:47] VITALS: BP 134/93; PULSE 71; O2SAT 99
--- NOTE | 2023-09-27 13:18 | DCPLANNER ---
messaged gen surg for er f/u
== END 2023-09-26 10:27 | disposition home or self-care (01) ==
PROVIDERS: Emergency Provider Family Medicine; PCP Family Medicine
DX: K92.0 Hematemesis (principal); K21.9 Gastro-esophageal reflux disease without esophagitis; E86.0 Dehydration; G89.29 Other chronic pain; R10.9 Unspecified abdominal pain
CPT/HCPCS: 74177; 80053; 81003; 81015; 83690; 85025; 96361; 96374; 96375; 99285; J2405; J2470; J7030; Q9967

== ENCOUNTER → 2023-10-23 10:52 | Outpatient (BNVA) | payer SELFPAY | PROVIDERS: PCP Family Medicine; Visit Provider Family Medicine | DX: R10.9 Unspecified abdominal pain (principal); K52.9 Noninfective gastroenteritis and colitis, unspecified; R11.2 Nausea with vomiting, unspecified; G89.29 Other chronic pain | CPT/HCPCS: 82784; 82785; 83516; 86001; 86003; 86036; 86038; 86431 ==

== ENCOUNTER → 2024-01-22 14:49 | Outpatient (BNVA) | payer MEDICAID, SELFPAY | PROVIDERS: PCP Family Medicine; Visit Provider Family Medicine | DX: Z79.899 Other long term (current) drug therapy (principal); Z51.81 Encounter for therapeutic drug level monitoring | CPT/HCPCS: 93005 ==

== ENCOUNTER 2024-03-13 07:28 | Emergency (ER) | payer MEDICAID, SELFPAY ==
[2024-03-13 07:45] VITALS: BP 152/96; PULSE 114; RESP 18; TEMP 36.7; O2SAT 98; BMI 35.2
--- NOTE | 2024-03-13 07:51 | ECG_ITS ---
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
--- NOTE | 2024-03-13 08:10 | XR_ITS ---
WS: [id number] XR chest 1V portable [id number] REASON FOR EXAM: dyspnea/cough FINDINGS: Chest is unchanged compared to 09/06/2022. Normal heart and mediastinum. Calcified granulomatous disease in both hemithoraces. No acute pulmonary parenchymal or pleural finding. Bony thorax intact without significant abnormality. XR/XR chest 1V portable [id number] IMPRESSION: Stable chest without acute abnormality.
[2024-03-13 08:35] LABS: Basophils # 0.1 10^3/uL (0.0-0.1); Basophils % 0.6 %; Eosinophils # 0.1 10^3/uL (0.0-0.8); Eosinophils % 0.8 %; Hematocrit 46.5 % (37-53); Lymphocytes # 1.3 10^3/uL (0.8-4.8); Lymphocytes % 15.5 %; Mean Corpuscular Hemoglobin 30.7 pg (27-33); Mean Corpuscular Volume 90.3 fl (82-101); Mean Platelet Volume 8.8 fL (7.4-10.4); Monocytes # 0.8 10^3/uL (0.2-0.9); Neutrophils # 6.15 10^3/uL (1.8-7.7); Nucleated Red Blood Cells % 0 %; Platelet Count 248 10^3/cmm (157-399); Red Blood Count 5.15 10^6/uL (3.85-5.65); Red Cell Distribution Width 13.2 % (12.1-15.1); White Blood Count 8.32 10^3/uL (3.29-11.43)
[2024-03-13 08:53] LABS: Alanine Aminotransferase 63 U/L (0-41); Alkaline Phosphatase 93 U/L (40-130); Anion Gap 26.7 (5-19); Aspartate Amino Transferase 65 U/L (0-40); Blood Urea Nitrogen 11 mg/dL (6-20); Calcium 10.4 mg/dL (8.5-10.5); Carbon Dioxide 21 mmol/L (22-29); Chloride 92 mmol/L (98-107); Creatinine Clr Calc Pharmacy 141.9023; Globulin 2.7 g/dL (1.3-4.6); Glomerular Filtration Rate 87.2 mL/min (90-130); Glucose 94 mg/dL (65-115); Lipase 26 U/L (13-60); Osmolality Calculated 281 mOsm/kg (285-295); Potassium 3.7 mmol/L (3.5-5.1); Sodium 136 mmol/L (136-145); Total Bilirubin 1.1 mg/dL (0.15-1.2); Total Protein 7.7 g/dL (6.6-8.7)
--- NOTE | 2024-03-13 09:53 | ED_ITS ---
HPI - Nausea/Vomiting/Diarrhea 2 General: Chief complaint: Nausea/Vomiting/Diarrhea Stated complaint: sob, rapid hr, n,v,d Abd pain Time Seen by Provider: 03/13/24 08:07 History of Present Illness: 33-year-old with a history of chronic ab dominal issues/irritable bowel syndrome and GERD who presents emergency room with nausea, vomiting and abdominal pain. He has diffuse abdominal pain. This been going on for 2 or 3 years but he has not able to keep anything down for the last 48 hours. His primary care told him to come to the emergency room. No known fevers. He said he has had some sweats. No focal abdominal pain. No chest pain. No altered mental status. Related Data Home Medications Medication Instructions Recorded Confirmed acetaminophen 500 mg tablet 500 mg PO Q6H PRN Pain 03/13/24 03/13/24 dicyclomine 10 mg capsule 10 mg PO QID PRN Diarrhea 03/13/24 03/13/24 Previous Rx's Medication Instructions Recorded buspirone 5 mg tablet 5 mg PO TID #90 tabs 12/05/23 escitalopram oxalate 20 mg tablet 20 mg PO DAILY #30 tabs 12/05/23 lorazepam 0.5 mg tablet 0.5 mg PO DAILY PRN anxiety #20 12/05/23 tabs pantoprazole 40 mg tablet,delayed 40 mg PO BID #60 tabs 12/05/23 release ondansetron HCl 8 mg tablet 8 mg PO Q8H PRN nausea and 01/22/24 vomiting #30 tabs quetiapine 100 mg tablet 100 mg PO BID #60 tabs 01/22/24 ondansetron 8 mg disintegrating 8 mg PO Q6H #14 tabs 03/13/24 tablet promethazine 25 mg rectal 25 mg NM Q6H PRN nausea and 03/13/24 suppository vomiting #12 ea sucralfate 1 gram tablet (Carafate) 1 g PO TID 4 weeks #84 tabs 03/13/24 tramadol 50 mg tablet 50 mg PO Q8H PRN pain #20 tabs 03/13/24 Allergies Allergy/AdvReac Type Severity Reaction Status Date / Time Alpha-Gal Allergy Mild Unknown Verified 03/13/24 07:50 ([id number],[id number] Review of Systems 2 Narrative: Constitutional symptoms: Negative except as documented in HPI. Skin symptoms: Negative except as documented in HPI. Eye symptoms: Negative except as documented in HPI. ENMT symptoms: Negative except as documented in HPI. Respiratory symptoms: Negative except as documented in HPI. Cardiovascular symptoms: Negative except as documented in HPI. Gastrointestinal symptoms: Negative except as documented in HPI. Genitourinary symptoms: Negative except as documented in HPI. Musculoskeletal symptoms: Negative except as documented in HPI. Neurologic symptoms: Negative except as documented in HPI. Psychiatric symptoms: Negative except as documented in HPI. Endocrine symptoms: Negative except as documented in HPI. 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; resolved; he reports a seizure as presentation 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--just one point above range Nonalcoholic fatty liver disease on CT Hiatal hernia with gastroesophageal reflux hiatal hernia on CT Mood swings Chronic insomnia Generalized anxiety disorder with panic attacks Nausea and vomiting Gastroesophageal reflux disease hiatal hernia on CT Family History Grandmother CAD (coronary artery disease) Cancer lung Diabetes Grandfather CAD (coronary artery disease) Cancer Lung disease Stroke Suicide Denies family history of Clotting disorder Dementia Hyperlipidemia Psychiatric illness Chronic kidney disease (CKD) Anesthesia complication Bleeding disorder Family history of premature coronary artery disease Hypertension Social History Smoking and tobacco/nicotine status: former use of tobacco/nicotine Quit status (tobacco/nicotine): has quit using Year quit tobacco: quit cigarettes 222 Alcohol intake: never Substance/Drug Use: current Marital status: Unknown Marital status details: fiance Number of children: 0 Highest education level completed: Some College, No Degree Current occupational status: unemployed Physical Exam 2 Narrative: EXAM NARRATIVE: General: Alert, no acute distress. Skin: Warm, dry. Head: Normocephalic, atraumatic. Neck: Supple, trachea midline. Eye: Extraocular movements are intact. Ears, nose, mouth and throat: mucosa moist. Cardiovascular: Regular, slightly tachycardic, normal peripheral perfusion. Respiratory: Lungs are clear to auscultation, respirations are non-labored, breath sounds are equal, Symmetrical chest wall expansion. Gastrointestinal: Soft, Nontender, Non distended Musculoskeletal: Normal ROM, no deformity. Neurological: Alert and oriented, No focal neurological deficit observed. Psychiatric: Cooperative, appropriate mood & affect. Course 2 Vital Signs: Vital signs: Vital Signs Temperature 98.1 F 03/13/24 07:45 Pulse Rate 119 H 03/13/24 11:56 Respiratory Rate 18 03/13/24 07:45 Blood Pressure 142/107 03/13/24 11:23 Pulse Oximetry 96 03/13/24 11:56 Oxygen Delivery Me thod Room Air 03/13/24 11:56 MDM - Nausea/Vomiting/Diarrhea Medical Decision Making Medical decision making: Differential diagnosis for this patient with nausea and vomiting including but not limited to and based on the above HPI, review of systems and physical exam: Urinary tract infection. Appendicitis. Cholecystis. colitis. small bowel obstruction. crohn's flare. pancreatitis. gastritis. peptic ulcer. cyclic vomiting. Viral illness. Influenza. COVID. Orders placed to evaluate differential diagnosis based on the above differential, HPI and physical exam Lab Review: Laboratory results were reviewed and interpreted by myself the emergency room physician. No leukocytosis. No anemia. No renal failure. Urine is not concentrated and no evidence of infection. Drug screen is normal. I reviewed the patient's medical record. Reexamination: Patient is feeling better after multiple medications. IV Tylenol seem to have helped him the most. No altered mental status. No increased work of breathing. Assessment and plan: Cyclic nausea and vomiting Irritable bowel syndrome ?8 mg IV Zofran, IV Compazine, IV Benadryl, IV Toradol and then IV Tylenol - Discharged home - Discussed plan with patient. Answered any questions. - Evaluation and treatment of this problem were appropriate in the emergency setting. Lab Data 03/13/24 08:27 03/13/24 08:27 Radiology Impressions Chest X-Ray 03/13/24 08:10 IMPRESSION: Stable chest without acute abnormality. Laboratory Results WBC 8.32 10^3/uL (3.29-11.43) 03/13/24 08:27 RBC 5.15 10^6/uL (3.85-5.65) 03/13/24 08:27 Hgb 15.80 g/dL (11.27-16.99) 03/13/24 08:27 Hct 46.5 % (37-53) 03/13/24 08: MCV 90.3 fl (82-101) 03/13/24 08: MCH 30.7 pg (27-33) 03/13/24 08: MCHC 34.0 g/dL (30-55) 03/13/24 08: RDW 13.2 % (12.1-15.1) 03/13/24 08:27 Plt Count 248 10^3/cmm (157-399) 03/13/24 08: MPV 8.8 fL (7.4-10.4) 03/13/24 08:27 Neut % (Auto) 74.0 % 03/13/24 08: Lymph % (Auto) 15.5 % 03/13/24 08: [place] % (Auto) 9.0 % 03/13/24 08: Eos % (Auto) 0.8 % 03/13/24 08: Baso % (Auto) 0.6 % 03/13/24 08: Neut # (Auto) 6.15 10^3/uL (1.8-7.7) 03/13/24 08:27 Lymph # (Auto) 1.3 10^3/uL (0.8-4.8) 03/13/24 08:27 [place] # (Auto) 0.8 10^3/uL (0.2-0.9) 03/13/24 08:27 Eos # (Auto) 0.1 10^3/uL (0.0-0.8) 03/13/24 08: Baso # (Auto) 0.1 10^3/uL (0.0-0.1) 03/13/24 08:27 Nucleated RBC % (auto) 0 % 03/13/24 08: Nucleated RBCs # 0.0 /100WBC 03/13/24 08:27 Sodium 136 mmol/L (136-145) 03/13/24 08:27 Potassium 3.7 mmol/L (3.5-5.1) 03/13/24 08:27 Chloride 92 mmol/L (98-107) L 03/13/24 08:27 Carbon Dioxide 21 mmol/L (22-29) L 03/13/24 08:27 Anion Gap 26.7 (5-19) H 03/13/24 08:27 BUN 11 mg/dL (6-20) 03/13/24 08:27 Creatinine 1.0 mg/dL (0.7-1.2) 03/13/24 08:27 GFR Calculation 87.2 mL/min (90-130) L 03/13/24 08:27 Glucose 94 mg/dL (65-115) 03/13/24 08:27 Calculated Osmolality 281 mOsm/kg (285-295) L 03/13/24 08:27 Calcium 10.4 mg/dL (8.5-10.5) 03/13/24 08:27 Total Bilirubin 1.1 mg/dL (0.15-1.2) 03/13/24 08:27 AST 65 U/L (0-40) H 03/13/24 08:27 ALT 63 U/L (0-41) H 03/13/24 08:27 Alkaline Phosphatase 93 U/L (40-130) 03/13/24 08:27 Total Protein 7.7 g/dL (6.6-8.7) 03/13/24 08:27 Albumin 5.0 g/dL (3.5-5.2) 03/13/24 08:27 Globulin 2.7 g/dL (1.3-4.6) 03/13/24 08:27 Lipase 26 U/L (13-60) 03/13/24 08:27 Urine Color Yellow (Yellow) 03/13/24 10:45 Urine Appearance Clear (CLEAR) 03/13/24 10:45 Urine pH 7.0 (5-7) 03/13/24 10:45 Ur Specific [place] 1.000 (1.005-1.030) L 03/13/24 10:45 Urine Protein Negative (Negative) 03/13/24 10:45 Urine Glucose (UA) Negative (Normal) 03/13/24 10:45 Urine Ketones Negative (Negative) 03/13/24 10:45 Urine Blood Negative (Negative) 03/13/24 10:45 Urine Nitrate Negative (Negative) 03/13/24 10:45 Urine Bilirubin Negative (Negative) 03/13/24 10:45 Urine Urobilinogen 0.2 mg/dL (Negative) 03/13/24 10:45 Ur Leukocyte Esterase Negative (Negative) 03/13/24 10:45 Urine RBC 0-2 /hpf (0-2) 03/13/24 10:45 Urine WBC 0-5 /hpf (0-5) 03/13/24 10:45 Ur Squamous Epith Cells 0-5 /hpf (0-5) 03/13/24 10:45 Amorphous Sediment Not Reportable 03/13/24 10:45 Urine Bacteria None seen /hpf (NONE) 03/13/24 10:45 Hyaline Casts 0-4 /lpf H 03/13/24 10:45 Urine Opiates Screen Negative ng/mL (Negative) 03/13/24 10:45 Ur Barbiturates Screen Negative ng/mL (Negative) 03/13/24 10:45 Ur Phencyclidine Scrn Negative ng/mL (Negative) 03/13/24 10:45 Ur Amphetamines Screen Negative ng/mL (Negative) 03/13/24 10:45 U Benzodiazepines Scrn Negative ng/mL (Negative) 03/13/24 10:45 Urine Cocaine Screen Negative ng/mL (Negative) 03/13/24 10:45 U Marijuana (THC) Screen Negative ng/mL (Negative) 03/13/24 10:45 No radiology studies performed this visit Discharge Plan Discharge Patient Disposition: Home Clinical Impression: Nausea & vomiting, Abdominal pain Irritable bowel syndrome Qualifiers: Irritable bowel syndrome type: with both diarrhea and constipation Qualified Code(s): K58.2 - Mixed irritable bowel syndrome Condition: Stable Prescriptions: New promethazine 25 mg suppository 25 mg NM Q6H PRN (Reason: nausea and vomiting) Qty: 12 0RF sucralfate [Carafate] 1 gram tablet 1 g PO TID 28 Days Qty: 84 0RF Rx Instructions: with meals ondansetron 8 mg tablet,disintegrating 8 mg PO Q6H Qty: 14 0RF Rx Instructions: Take 1/2-1 tab every 6 hours as needed for nausea and vomiting tramadol 50 mg tablet 50 mg PO Q8H PRN (Reason: pain) Qty: 20 0RF No Action quetiapine 100 mg tablet 100 mg PO BID Qty: 60 1RF ondansetron HCl 8 mg tablet 8 mg PO Q8H PRN (Reason: nausea and vomiting) Qty: 30 0RF buspirone 5 mg tablet 5 mg PO TID Qty: 90 5RF escitalopram oxalate 20 mg tablet 20 mg PO DAILY Qty: 30 6RF lorazepam 0.5 mg tablet 0.5 mg PO DAILY PRN (Reason: anxiety) Qty: 20 5RF pantoprazole 40 mg tablet,delayed release (DR/EC) 40 mg PO BID Qty: 60 5RF acetaminophen 500 mg Tablet 500 mg PO Q6H PRN (Reason: Pain) dicyclomine 10 mg capsule 10 mg PO QID PRN (Reason: Diarrhea) Discharge Orders: Discharge ED (Routine); Ordered 03/13/24 Ordered By: Dominique Casey Referrals: Laura Hernandez MD [Primary Care Provider] - Discharge Diet: Advance as tolerated Discharge Activity: Increase activity as tolerated Patient Instructions: Abdominal Pain (ED), Opioid Safety, Pain Management Activity Restrictions/Additional Instructions: Thank you for choosing [facility] for your healthcare needs today. Please realize this is an emergency room and that we are providing you with a medical screening exam and this may not be complete and all inclusive of all the testing and or work up that you may need to determine your ailment or severity of your illness. You have been screened and evaluated and felt safe for discharge. Health conditions do change or evolve sometimes and as such it is important that you follow up with your Primary Doctor to be re checked, 3-5 days is a general good time frame for follow up. You are always welcome to return to the ED for re assessment if your symptoms are worsening or you have new concerns Coding Level of Care Code ED Wood Cutter for Mitzi Carrizales
[2024-03-13] MEDS: ondansetron 2 mg/ML SDV 2 mL 4 MG IVP (09:58)
[2024-03-13] MEDS: diphenhydrAMINE 50 mg/mL SDV 1mL IVP (10:01)
[2024-03-13] MEDS: prochlorperazine 10 mg/2 mL Inj IVP (10:02)
[2024-03-13 11:07] LABS: Bacteria Urine None Seen /hpf; Hyaline Casts Urine 0-4 /lpf; RBC Urine 0-2 /hpf (0-2); Squamous Epithelial Cell Urine 0-5 /hpf (0-5); WBC Urine 0-5 /hpf (0-5)
[2024-03-13 11:10] LABS: Amphetamines Screen Urine Negative (Negative); Barbiturates Screen Urine Negative (Negative); Benzodiazepines Screen Urine Negative (Negative); Cocaine Screen Urine Negative (Negative); Opiate Screen Urine Negative (Negative); PCP Screen Urine Negative (Negative); THC Screen Urine Negative (Negative)
[2024-03-13 11:23] VITALS: BP 142/107; PULSE 116; O2SAT 98
[2024-03-13 11:24] LABS: Add Urine Microscopic? YES; Bilirubin Urine Negative (Negative); Blood Urine Negative (Negative); Glucose Urine UA Negative (Normal); Ketones Urine Negative (Negative); Leukocyte Esterase Urine Negative (Negative); Nitrate Urine Negative (Negative); Protein Urine Negative (Negative); Urine Appearance Clear (CLEAR); Urine Color Yellow (Yellow); Urobilinogen Urine 0.2 mg/dL (Negative)
[2024-03-13] MEDS: acetaminophen 1,000 MG/100 ML PIGGYBACK 400 MG IV (11:54)
[2024-03-13 11:56] VITALS: PULSE 119; O2SAT 96
== END 2024-03-13 12:56 | disposition home or self-care (01) ==
PROVIDERS: Family Medicine; Emergency Provider Emergency Medicine; PCP Family Medicine
DX: K58.2 Mixed irritable bowel syndrome (principal); Z87.891 Personal history of nicotine dependence
CPT/HCPCS: 36415; 71045; 80053; 80306; 81001; 83690; 85025; 93005; 96374; 96375; 99285; J0131; J0780; J1200; J2405

== ENCOUNTER 2024-04-01 07:15 | Outpatient (CLI) | payer MEDICAID, SELFPAY ==
--- NOTE | 2024-04-01 07:30 | US_ITS ---
WS: [id number] RIGHT UPPER QUADRANT ULTRASOUND HISTORY: recurrent n/v episodes, severe COMPARISON: CT 09/26/2023 Liver: 17.1 cm in length. Liver is normal size with coarse echotexture. Loss of the normal portal triads. No mass. Portal Vein: Normal hepatopetal flow with monophasic waveform. Gallbladder: Normally distended gallbladder with no stones or wall thickening. CBD: 0.4 cm Pancreas: Normal size and echogenicity. Right kidney: 9.3 cm in length. Normal size and echogenicity. No hydronephrosis or mass. Aorta and IVC: Unremarkable abdominal aorta and IVC. No ascites. US/US abdomen limited [id number] IMPRESSION: 1. Technically limited evaluation of the RIGHT upper quadrant due to body habi tus. 2. Normal size liver with moderate hepatic steatosis. 3. Negative gallbladder.
== END 2024-04-01 07:16 | disposition home or self-care (01) ==
PROVIDERS: PCP Family Medicine; Visit Provider Family Medicine
DX: R11.2 Nausea with vomiting, unspecified (principal); K52.9 Noninfective gastroenteritis and colitis, unspecified; K76.0 Fatty (change of) liver, not elsewhere classified; R93.2 Abnormal findings on diagnostic imaging of liver and biliary tract
CPT/HCPCS: 76705

== ENCOUNTER 2024-04-10 09:40 | Outpatient (CLI) | payer MEDICAID, SELFPAY ==
--- NOTE | 2024-04-10 10:00 | NM_ITS ---
WS: [id number] NUCLEAR MEDICINE HIDA SCAN CLINICAL INFORMATION: recurrent nausea and vomiting TECHNIQUE: Following intravenous administration of 8.3 mCi of technetium 99m mebrofenin, images of the abdomen were obtained over the course of 60 minutes. Next, gallbladder ejection fraction was determined by obtaining preprandial and one-hour postprandial images of the gallbladder following oral ingestion of Ensure. FINDINGS: Normal hepatic uptake at 5 minutes. Normal hepatic excretion. Gallbladder appears somewhat contracted but is visualized by 15 minutes. No evidence of acute cholecystitis. Normal common bile duct and small bowel activity. Gallbladder ejection fraction 59% within normal limits. No evidence of chronic cholecystitis. NM/NM hepatobiliary w phar* [id number] IMPRESSION: 1. No evidence of acute or chronic cholecystitis. 2. Gallbladder ejection fraction 59% within normal limits.
== END 2024-04-10 09:41 | disposition home or self-care (01) ==
LOC: RAD 09:41
PROVIDERS: PCP Family Medicine; Visit Provider Family Medicine
DX: R11.2 Nausea with vomiting, unspecified (principal); R10.9 Unspecified abdominal pain; G89.29 Other chronic pain; R93.3 Abnormal findings on diagnostic imaging of other parts of digestive tract
CPT/HCPCS: 78227; A9537

== ENCOUNTER 2024-06-26 07:43 | Day surgery (SDC) | payer MEDICAID, SELFPAY ==
--- NOTE | 2024-06-26 07:28 | W.PM.OPSUD ---
Surgery/Procedure H&P Update DATE OF PROCEDURE: June 26, 2024 DATE H&P PERFORMED: 05/28/24 H&P UPDATE INFORMATION: I have reviewed H&P completed within last 30 days, I have examined patient prior to procedure, No changes to prior documentation, Changes to prior documentation as noted here and Risks and benefits of the procedure reviewed PLANNED PROCEDURE: Operation Date: 06/26/24 09:00 Proposed Procedures p EGD 38249 [id number] G0105 K21.9 F12.188(Not Applicable) - Kaushik Crabtree MD s Colonoscopy(Not Applicable) - Kaushik Crabtree MD
[2024-06-26 07:55] VITALS: BMI 37.3
[2024-06-26] MEDS: sodium chloride 0.9% 1,000 ML 15 ML IV (08:00)
[2024-06-26 08:03] VITALS: BP 146/106; PULSE 120; RESP 19; TEMP 36.4; O2SAT 97
--- NOTE | 2024-06-26 08:21 | P.ANESASSM_ITS ---
Pre-Anesthetic Assessment Height/Weight: Height 1.83 m Weight 124.738 kg Temp Pulse Resp BP Pulse Ox O2 Del Method 97.6 F 120 H 19 H 146/106 97 Room Air 06/26/24 08:03 06/26/24 08:03 06/26/24 08:03 06/26/24 08:03 06/26/24 08:03 06/26/24 08:03 Preop Diagnosis: Cannibis hyperemesis, Screening Operation Date: 06/26/24 09:00 Proposed Procedures p EGD [id number] 12075 G0105 K21.9 F12.188(Not Applicable) - Kaushik Crabtree MD s Colonoscopy(Not Applicable) - Kaushik Crabtree MD Was Beta Elisa taken within 24 hours: N/A Was Clonidine taken within 24 hours: N/A Last intake: Intake Last Liquid Date 06/25/24 Last Liquid Time 20:00 Last Solid Date 06/24/24 Last Solid Time 16:00 Social Daily THC Exam alert, oriented x 3, clear to auscultation bilaterally and regular rate & rhythm Airway Submandibular: within normal limits Cervical ROM: within normal limits Mallampati: Class II Dentition: full History/ROS No significant history except as noted and No significant complaints Pulmonary None reported CV/HEM Hypertension No meds for HTN Chronic Renal Failure Hepatic Fatty liver GI Gastroesophageal Reflux Disease IBS Metabolic Morbid Obesity [facility] None reported Neuropsych Anxiety and Seizure No Sz since child Anesthetic Plan ASA status: 2 Anesthesia: Anesthesia Evaluation and MAC Risk of > 500 ml blood loss (7ml/kg in children): No Medications/Allergies Home Medications ?Medication ?Instructions ?Recorded ?Confirmed ?Last Taken ?Type escitalopram oxalate 20 mg tablet 20 mg PO DAILY #30 t abs 12/05/23 06/26/24 06/26/24 Rx lorazepam 0.5 mg tablet 0.5 mg PO DAILY PRN anxiety #20 12/05/23 06/26/24 Unknown Rx tabs pantoprazole 40 mg tablet,delayed 40 mg PO BID #60 tab s 12/05/23 06/26/24 06/26/24 Rx release ondansetron 8 mg disintegrating 8 mg PO Q6H #14 tabs 0 03/13/24 06/26/24 06/26/24 Rx tablet promethazine 25 mg rectal 25 mg [place] Q6H PRN nausea and 03/13/24 06/26/24 Unknown Rx suppository vomiting #12 ea quetiapine 100 mg tablet 100 mg PO BID #60 tabs 04/0406/26/24 06/26/24 Rx dicyclomine 10 mg capsule 10 mg PO QID PRN Diarrhea #1 20 caps 05/26/24 06/26/24 06/26/24 Rx ondansetron HCl 8 mg tablet 8 mg PO Q8H PRN nausea and 05/26/24 06/26/24 Unknown Rx vomiting #30 tabs buspirone 5 mg tablet 5 mg PO TID #90 tabs 5 06/26/24 06/26/24 Rx Allergies Allergy/AdvReac Type Severity Reaction Status Date / Time Alpha-Gal Allergy Mild Unknown Verified 06/23/24 09:32 (Fdaqacsjp-Wcfcc-2,3-Gala [facility] Anesthesia Medical History Irritable bowel syndrome with diarrhea dicyclomine helps 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; resolved; he reports a seizure as presentation 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--just one point above range Nonalcoholic fatty liver disease on CT Hiatal hernia with gastroesophageal reflux hiatal hernia on CT Mood swings Chronic insomnia Generalized anxiety disorder with panic attacks Nausea and vomiting Gastroesophageal reflux disease hiatal hernia on CT Family History Grandmother CAD (coronary artery disease) Cancer lung Diabetes Grandfather CAD (coronary artery disease) Cancer Lung disease Stroke Suicide Denies family history of Clotting disorder Dementia Hyperlipidemia Psychiatric illness Chronic kidney disease (CKD) Anesthesia complication Bleeding disorder Family history of premature coronary artery disease Hypertension Social History Smoking and tobacco/nicotine status: never used tobacco/nicotine Quit status (tobacco/nicotine): has quit using Year quit tobacco: quit cigarettes 222 Alcohol intake: never Substance/Drug Use: current Marital status: Unknown Marital status details: fiance Number of children: 0 Highest education level completed: Some College, No Degree Current occupational status: unemployed
[2024-06-26 09:14] VITALS: BP 107/74; PULSE 95; RESP 18; TEMP 36.1; O2SAT 94
[2024-06-26 09:27] VITALS: BP 129/79; PULSE 96; RESP 18; O2SAT 95
--- NOTE | 2024-06-26 09:30 | ANE.PACU2 ---
Inpatient post-anesthesia follow up: Vital signs: Temperature 97.0 F Pulse Rate 96 Respiratory Rate 18 Blood Pressure 129/79 Pulse Oximetry 95 Oxygen Delivery Me thod Room Air Oxygen Flow Rate Fraction of Inspir ed Oxygen
== END 2024-06-26 09:33 | disposition home or self-care (01) ==
PROVIDERS: PCP Family Medicine; Visit Provider Surgery
PROC: 0DJ08ZZ Inspection of Upper Intestinal Tract, Via Natural or Artificial Opening Endoscopic (ICD-10-PCS; principal; 2024-06-26 09:00)
PROC: 0DJD8ZZ Inspection of Lower Intestinal Tract, Via Natural or Artificial Opening Endoscopic (ICD-10-PCS; CPT 45378; 2024-06-26 09:00)
DX: K21.9 Gastro-esophageal reflux disease without esophagitis (principal); F12.188 Cannabis abuse with other cannabis-induced disorder; R11.2 Nausea with vomiting, unspecified; E66.01 Morbid (severe) obesity due to excess calories; K76.0 Fatty (change of) liver, not elsewhere classified; N18.9 Chronic kidney disease, unspecified; I12.9 Hypertensive chronic kidney disease with stage 1 through stage 4 chronic kidney disease, or unspecified chronic kidney disease; Z68.37 Body mass index [BMI] 37.0-37.9, adult; Z79.899 Other long term (current) drug therapy; Z87.891 Personal history of nicotine dependence
CPT/HCPCS: 43239; 45380; 88305; J7030

== ENCOUNTER 2024-06-30 11:33 | Emergency (ER) | payer MEDICAID, SELFPAY ==
[2024-06-30 11:35] VITALS: BP 137/87; PULSE 120; TEMP 36.4; O2SAT 97; BMI 37.3
--- NOTE | 2024-06-30 11:51 | ECG_ITS ---
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 Measurements Intervals [place] Rate: 133 P: 59 [place]: 150 QRS: 35 QRSD: 89 T: 38 QT: 282 QTc: 419 Interpretive Statements SINUS TACHYCARDIA ABNORMAL RHYTHM ECG INTERPRETATION BASED ON A DEFAULT AGE OF 40 YEARS Compared to ECG 03/13/2024 07:51:27 No significant changes Electronically Signed On 07-02-2024 23:31:20 CDT by Terrell Reaves M.D. [id number]
--- NOTE | 2024-06-30 11:51 | XR_ITS ---
WS: [id number] PORTABLE CHEST HISTORY: chest pain COMPARISON: 03/13/2024 Lungs are clear and well expanded. No pleural effusion or pneumothorax. Cardiac size: Normal. Mediastinum/Aorta: Normal mediastinum. No osseous abnormality seen. XR/XR chest 1V portable [id number] IMPRESSION: Unremarkable portable chest.
[2024-06-30 12:48] LABS: Basophils % 0.4 %; Hematocrit 47.8 % (37-53); Lymphocytes # 1.3 10^3/uL (0.8-4.8); Lymphocytes % 12.7 %; Mean Corpuscular HGB Conc 32.6 g/dL (30-55); Mean Corpuscular Hemoglobin 30.7 pg (27-33); Mean Corpuscular Volume 94.1 fl (82-101); Mean Platelet Volume 9.5 fL (7.4-10.4); Monocytes # 0.6 10^3/uL (0.2-0.9); Monocytes % 5.3 %; Neutrophils # 8.55 10^3/uL (1.8-7.7); Neutrophils % 81.2 %; Nucleated Red Blood Cells % 0 %; Platelet Count 320 10^3/cmm (157-399); Red Blood Count 5.08 10^6/uL (3.85-5.65); Red Cell Distribution Width 12.6 % (12.1-15.1); White Blood Count 10.53 10^3/uL (3.29-11.43)
[2024-06-30 13:10] LABS: Alanine Aminotransferase 27 U/L (0-41); Albumin Level 5.2 g/dL (3.5-5.2); Alkaline Phosphatase 93 U/L (40-130); Anion Gap 38.2 (5-19); Aspartate Amino Transferase 27 U/L (0-40); Blood Urea Nitrogen 16 mg/dL (6-20); Calcium 10.6 mg/dL (8.5-10.5); Carbon Dioxide 11 mmol/L (22-29); Chloride 98 mmol/L (98-107); Creatinine Clr Calc Pharmacy 162.2472; Globulin 2.6 g/dL (1.3-4.6); Glomerular Filtration Rate 98.4 mL/min (90-130); Glucose 79 mg/dL (65-115); Lipase 17 U/L (13-60); Osmolality Calculated 296 mOsm/kg (285-295); Potassium 4.2 mmol/L (3.5-5.1); Sodium 143 mmol/L (136-145); Total Bilirubin 0.4 mg/dL (0.15-1.2); Total Protein 7.8 g/dL (6.6-8.7); Troponin(5th) Baseline < 6 ng/L (0-15)
--- NOTE | 2024-06-30 14:33 | ED_ITS ---
HPI - Nausea/Vomiting/Diarrhea 2 General: Chief complaint: Nausea/Vomiting/Diarrhea Stated complaint: n/v/d, chest pressure, high hr Time Seen by Provider: 06/30/24 14:32 History of Present Illness: 33-year-old male presents emergency room with protracted nausea and vomiting. He is hyperventilating when he first arrived his anion gap and his CO2 were low. His ABG also shows hyperventilation. He has had multiple episodes of being seen for similar symptoms. Patient has hyperemesis cannabinoid. He recently had an EGD and colonoscopy both of which were negative he had extensive gallbladder workup has been no evidence of biliary dyskinesia acute cholecystitis cholelithiasis. Associated symtoms: Denies chest pain or dysuria Related Data Previous Rx's ?Medication ?Instructions ?Recorded escitalopram oxalate 20 mg tablet 20 mg PO DAILY #30 t abs 12/05/23 lorazepam 0.5 mg tablet 0.5 mg PO DAILY PRN anxiety #20 12/05/23 tabs pantoprazole 40 mg tablet,delayed 40 mg PO BID #60 tab s 12/05/23 release quetiapine 100 mg tablet 100 mg PO BID #60 tabs 04/04 dicyclomine 10 mg capsule 10 mg PO QID PRN Diarrhea #1 20 caps 05/26/24 ondansetron HCl 8 mg tablet 8 mg PO Q8H PRN nausea and 05/26/24 vomiting #30 tabs buspirone 5 mg tablet 5 mg PO TID #90 tabs 06/19/ 5 lorazepam 2 mg tablet (Ativan) 2 mg sublingual Q6H PRN nausea and 06/30/24 vomiting #14 tabs olanzapine 10 mg disintegrating 10 mg PO DAILY #14 tab s 06/30/24 tablet Allergies Allergy/AdvReac Type Severity Reaction Status Date / Time Alpha-Gal Allergy Mild Unknown Verified 06/30/24 11:43 (Efmxsiskk-Vkakh-0,3-Gala Review of Systems 2 Const: Denies: fever(s) or chills Card: Denies: chest pain Resp: Denies: dyspnea GI: Denies: abdominal pain : Denies: dysuria, urinary frequency or urinary urgency Musc: Denies: neck pain or back pain Skin/Breast: Denies: rash 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; resolved; he reports a seizure as presentation 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--just one point above range Nonalcoholic fatty liver disease on CT Hiatal hernia with gastroesophageal reflux hiatal hernia on CT Mood swings Chronic insomnia Generalized anxiety disorder with panic attacks Nausea and vomiting Gastroesophageal reflux disease hiatal hernia on CT Family History Grandmother CAD (coronary artery disease) Cancer lung Diabetes Grandfather CAD (coronary artery disease) Cancer Lung disease Stroke Suicide Denies family history of Clotting disorder Dementia Hyperlipidemia Psychiatric illness Chronic kidney disease (CKD) Anesthesia complication Bleeding disorder Family history of premature coronary artery disease Hypertension Social History Smoking and tobacco/nicotine status: never used tobacco/nicotine Quit status (tobacco/nicotine): has quit using Year quit tobacco: quit cigarettes 222 Alcohol intake: never Substance/Drug Use: current Marital status: Unknown Marital status details: fiance Number of children: 0 Highest education level completed: Some College, No Degree Current occupational status: unemployed Physical Exam 2 Const: GENERAL APPEARANCE: cooperative ORIENTATION/CONSCIOUSNESS: Yes awake, Yes oriented to person, Yes oriented to place and Yes oriented to time HENMT: COMMON NORMALS: normocephalic, atraumatic and hearing grossly normal bilaterally HEAD & SCALP: normocephalic and atraumatic Resp: COMMON NORMALS: normal respiratory effort, No retractions, No use of accessory muscles and clear to auscultation bilaterally AUSCULTATION: clear to auscultation bilaterally Cardio: COMMON NORMALS: regular rate, regular rhythm and No murmurs present (Cardio) RATE: regular rate RHYTHM: regular rhythm GI: COMMON NORMALS: Soft to palpation and No hepatosplenomegaly present A USCULTATION: Yes normoactive bowel sounds PALPATION: Yes Soft to palpation, No Tenderness to palpation present (GI), No Guarding due to palpation present (GI) and Yes No hepatosplenomegaly present Extremity: COMMON NORMALS: normal to inspection, capillary refill normal, no clubbing, cyanosis or edema, no calf tenderness and no pedal edema Neuro: SENSORIUM/ORIENTATION: Yes oriented to person, Yes oriented to place and Yes oriented to time Skin: COMMON NORMALS: no rashes or lesions noted GENERAL SKIN EXAM: no rashes or lesions noted Course 2 Vital Signs: Vital signs: Vital Signs Temperature 97.5 F L 06/30/24 11:35 Pulse Rate 102 H 06/30/24 18:59 Respiratory Rate 16 06/30/24 18:59 Blood Pressure 141/75 06/30/24 18:59 Pulse Oximetry 99 06/30/24 18:59 Oxygen Delivery Me thod Room Air 06/30/24 11:35 MDM - Nausea/Vomiting/Diarrhea Medical Decision Making Patient recently stopped using marijuana proximately still having some persistent hyperemesis cannabinoid. Reviewed his chart he has had extensive workup including ultrasound of his gallbladder he will nuclear medicine scan of his gallbladder. He has had EGD and colonoscopy all of which have been negative no liver function abnormalities previously he did respond well to medications given will discharge home on olanzapine buccal Ativan to use as needed supportive cares and follow-up with primary care. Medical Records I reviewed the patient's medical records. Lab Data I reviewed the patient's lab results. 06/30/24 12:36 06/30/24 16:21 Radiology Impressions Chest X-Ray 06/30/24 11:51 IMPRESSION: Unremarkable portable chest. Laboratory Results WBC 10.53 10^3/uL (3.29-11.43) 06/30/24 12:36 RBC 5.08 10^6/uL (3.85-5.65) 06/30/24 12:36 Hgb 15.60 g/dL (11.27-16.99) 06/30/24 12:36 Hct 47.8 % (37-53) 06/30/24 12:36 MCV 94.1 fl (82-101) 06/30/24 12:36 MCH 30.7 pg (27-33) 06/30/24 12:36 MCHC 32.6 g/dL (30-55) 06/30/24 12:36 RDW 12.6 % (12.1-15.1) 06/30/24 12:36 Plt Count 320 10^3/cmm (157-399) 06/30/24 12:36 MPV 9.5 fL (7.4-10.4) 06/30/24 12:36 Neut % (Auto) 81.2 % 06/30/24 12:36 Lymph % (Auto) 12.7 % 06/30/24 12:36 [facility] [place] % (Auto) 5.3 % 06/30/24 12:36 Eos % (Auto) 0.0 % 06/30/24 12:36 Baso % (Auto) 0.4 % 06/30/24 12:36 Neut # (Auto) 8.55 10^3/uL (1.8-7.7) H 06/30/24 12:36 Lymph # (Auto) 1.3 10^3/uL (0.8-4.8) 06/30/24 12:36 [facility] [place] # (Auto) 0.6 10^3/uL (0.2-0.9) 06/30/24 12:36 Eos # (Auto) 0.0 10^3/uL (0.0-0.8) 06/30/24 12:36 Baso # (Auto) 0.0 10^3/uL (0.0-0.1) 06/30/24 12:36 Nucleated RBC % (auto) 0 % 06/30/24 12:36 Nucleated RBCs # 0.0 /100WBC 06/30/24 12:36 Specimen Type Arterial 06/30/24 14:30 Sample Site Radial, left 06/30/24 14:30 ABG pH 7.39 (7.35-7.45) 06/30/24 14:30 ABG pCO2 20.9 mmHg (35-45) L 06/30/24 14:30 ABG pO2 108.0 mmHg (80.0-100.0) H 06/30/24 14:30 ABG PO2/FiO2 Ratio 514 06/30/24 14:30 ABG HCO3 12.6 mmol/L (22-26) L 06/30/24 14:30 ABG O2 Saturation 98.4 06/30/24 14:30 ABG Base Excess -9.7 mmol/L (-2.0-2.0) L 06/30/24 14:30 Jose Test Pos 06/30/24 14:30 A-a O2 Gradient 1.7 mmHg (5-10) L 06/30/24 14:30 Hematocrit 49.3 % (42-52) 06/30/24 14:30 Hgb O2 Saturation 96.7 % (95-100) 06/30/24 14:30 Carboxyhemoglobin 0.5 %THgb (0.4-20.1) 06/30/24 14:30 Methemoglobin 1.2 % (0.4-1.5) 06/30/24 14:30 Total Hemoglobin 16.1 g/dL (14-18) 06/30/24 14:30 Sodium 146.0 mmol/L (131-143) H 06/30/24 14:30 Potassium 3.8 mmol/L (3.5-5.0) 06/30/24 14:30 Glucose 80.0 mg/dL (70-115) 06/30/24 14:30 Ionized Calcium 1.2 mmol/L (1.1-1.4) 06/30/24 14:30 O2 Delivery Device Room air 06/30/24 14:30 FiO2 21.0 % 06/30/24 14:30 Job Press Operator ID [place] 06/30/24 14:30 Sodium 143 mmol/L (136-145) 06/30/24 16:21 Potassium 4.4 mmol/L (3.5-5.1) 06/30/24 16:21 Chloride 100 mmol/L (98-107) 06/30/24 16:21 Carbon Dioxide 15 mmol/L (22-29) L 06/30/24 16:21 Anion Gap 32.4 (5-19) H 06/30/24 16:21 BUN 16 mg/dL (6-20) 06/30/24 16:21 Creatinine 0.8 mg/dL (0.7-1.2) 06/30/24 16:21 GFR Calculation 112.8 mL/min (90-130) 06/30/24 16:21 Glucose 69 mg/dL (65-115) 06/30/24 16:21 Calculated Osmolality 296 mOsm/kg (285-295) H 06/30/24 16:21 Calcium 10.2 mg/dL (8.5-10.5) 06/30/24 16:21 Total Bilirubin 0.4 mg/dL (0.15-1.2) 06/30/24 12:36 AST 27 U/L (0-40) 06/30/24 12:36 ALT 27 U/L (0-41) 06/30/24 12:36 Alkaline Phosphatase 93 U/L (40-130) 06/30/24 12:36 Troponin T Baseline < 6 ng/L (0-15) 06/30/24 12:36 Troponin T 120 Minute < 6.0 ng/L (0-15) 06/30/24 14:28 Delta Troponin T 0 ABS# (0-10) 06/30/24 14:28 Troponin T Hi Sens 6Hr < 6.0 ng/L (0-15) 06/30/24 18:22 Troponin T Hi Sens 6Hr Delta 0 ng/L (0-12) 06/30/24 18:22 Total Protein 7.8 g/dL (6.6-8.7) 06/30/24 12:36 Albumin 5.2 g/dL (3.5-5.2) 06/30/24 12:36 Globulin 2.6 g/dL (1.3-4.6) 06/30/24 12:36 Lipase 17 U/L (13-60) 06/30/24 12:36 All radiology interpretation(s) finalized by discharge Discharge Plan Discharge Patient Disposition: Home Clinical Impression: Cannabinoid hyperemesis syndrome Condition: Stable Prescriptions: New olanzapine 10 mg tablet,disintegrating 10 mg PO DAILY Qty: 14 0RF lorazepam [Ativan] 2 mg tablet 2 mg sublingual Q6H PRN (Reason: nausea and vomiting) Qty: 14 0RF No Action buspirone 5 mg tablet 5 mg PO TID Qty: 90 5RF dicyclomine 10 mg capsule 10 mg PO QID PRN (Reason: Diarrhea) Qty: 120 1RF ondansetron HCl 8 mg tablet 8 mg PO Q8H PRN (Reason: nausea and vomiting) Qty: 30 0RF escitalopram oxalate 20 mg tablet 20 mg PO DAILY Qty: 30 6RF lorazepam 0.5 mg tablet 0.5 mg PO DAILY PRN (Reason: anxiety) Qty: 20 5RF pantoprazole 40 mg tablet,delayed release (DR/EC) 40 mg PO BID Qty: 60 5RF quetiapine 100 mg tablet 100 mg PO BID Qty: 60 1RF Discharge Orders: Discharge ED (Routine); Ordered 06/30/24 Ordered By: Arturo Lenz Referrals: Laura Hernandez MD [Primary Care Provider, Family Practice] Discharge Diet: Usual diet Discharge Activity: Increase activity as tolerated Patient Instructions: Opioid Safety, Pain Management Activity Restrictions/Additional Instructions: Thank you for choosing [facility] for your healthcare needs today. It is very important that you follow up as instructed or that you return to the Emergency Department should you have concerns or if your condition changes or worsens in any way. You are seen emergency room with persistent nausea vomiting. Reviewing your chart you had extensive evaluation in the past with ultrasounds nuclear biliary scans and laboratory work and colonoscopy and EGD. Suspect that your symptoms are related to THC use. This is a common side effect. Often after people stop using THC products they will continue to have symptoms for several weeks. The medications you were prescribed today lorazepam and olanzapine can be used for recurrent nausea and vomiting. 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
--- NOTE | 2024-06-30 14:38 | ECG_ITS ---
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 Measurements Intervals [place] Rate: 113 P: 42 [place]: 145 QRS: 13 QRSD: 94 T: 21 QT: 304 QTc: 418 Interpretive Statements SINUS TACHYCARDIA ABNORMAL RHYTHM ECG Compared to ECG 06/30/2024 11:39:01 No significant changes Electronically Signed On 07-02-2024 23:44:32 CDT by Terrell Reaves M.D. [email or web address]
[2024-06-30 14:52] LABS: ABG PCO2 20.9 mmHg (35-45); ABG PH Result 7.39 (7.35-7.45); Alveolar-Arterial Oxygen Gradi 1.7 mmHg (5-10); Arterial Blood Gas Hematocrit 49.3 % (42-52); Base Excess ABG -9.7 mmol/L (-2.0-2.0); Blood Gas Allen Test Pos; Blood Gas Operator Identificat WALCI; Blood Gas Sample Site Radial, left; Blood Gas Sample Type Arterial; Carboxyhemoglobin 0.5 %THgb (0.4-20.1); HCO3 ABG 12.6 mmol/L (22-26); HGB O2 Sat 96.7 % (95-100); Ionized Calcium Level - ABG 1.2 mmol/L (1.1-1.4); Methemoglobin 1.2 % (0.4-1.5); Oxygen Device ROOM AIR; Oxygen Saturation ABG 98.4; PO2 FiO2 Ratio Arterial Blood 514; Potassium Level - ABG 3.8 mmol/L (3.5-5.0); Total Hemoglobin 16.1 g/dL (14-18)
[2024-06-30 14:53] LABS: Troponin 5 2HR < 6.0 ng/L (0-15); Troponin 5 2HR Delta 0 ABS# (0-10)
[2024-06-30] MEDS: LORazepam 1 MG/0.5 ML injection 2 MG IVP ×2 (14:59→18:02)
[2024-06-30] MEDS: haloperidol inj 5 mg/mL INJ 1 mL 2.5 MG IVP (14:59)
[2024-06-30] MEDS: lactated ringers 1,000 ML 999 ML IV ×2 (15:06→16:15)
[2024-06-30 15:08] VITALS: BP 128/102; PULSE 119; O2SAT 97
[2024-06-30 16:53] LABS: Anion Gap 32.4 (5-19); Blood Urea Nitrogen 16 mg/dL (6-20); Calcium 10.2 mg/dL (8.5-10.5); Carbon Dioxide 15 mmol/L (22-29); Chloride 100 mmol/L (98-107); Creatinine Clr Calc Pharmacy 182.5281; Glomerular Filtration Rate 112.8 mL/min (90-130); Glucose 69 mg/dL (65-115); Osmolality Calculated 296 mOsm/kg (285-295); Potassium 4.4 mmol/L (3.5-5.1); Sodium 143 mmol/L (136-145)
[2024-06-30] MEDS: prochlorperazine 10 mg/2 mL Inj IVP (17:21)
[2024-06-30 17:26] VITALS: BP 135/75; PULSE 121; RESP 17; O2SAT 97
--- NOTE | 2024-06-30 17:51 | ECG_ITS ---
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 Measurements Intervals [place] Rate: 120 P: 64 [place]: 124 QRS: 41 QRSD: 90 T: 42 QT: 280 QTc: 397 Interpretive Statements SINUS TACHYCARDIA ABNORMAL RHYTHM ECG Compared to ECG 06/30/2024 14:38:59 No significant changes Electronically Signed On 07-02-2024 23:43:50 CDT by Terrell Reaves M.D. [id number]
[2024-06-30] MEDS: haloperidol inj 5 mg/mL INJ 1 mL IVP (18:03)
[2024-06-30 18:04] VITALS: BP 154/99; PULSE 130; RESP 16; O2SAT 97
[2024-06-30 18:59] VITALS: BP 141/75; PULSE 102; RESP 16; O2SAT 99
[2024-06-30 18:59] LABS: Troponin 5 6HR < 6.0 ng/L (0-15); Troponin 5 6HR Delta 0 ng/L (0-12)
== END 2024-06-30 18:59 | disposition home or self-care (01) ==
PROVIDERS: Physician Assistant; Emergency Provider Family Medicine; PCP Family Medicine
DX: R11.2 Nausea with vomiting, unspecified (principal); F12.90 Cannabis use, unspecified, uncomplicated; Z87.891 Personal history of nicotine dependence
CPT/HCPCS: 36415; 36600; 71045; 80048; 80051; 80053; 82330; 82805; 83690; 84484; 85025; 93005; 96361; 96374; 96375; 96376; 99285; J0780; J1630; J2060; J7120

== ENCOUNTER 2024-08-25 14:25 | Emergency (ER) | payer MEDICAID, SELFPAY ==
[2024-08-25 14:28] VITALS: BP 155/108; PULSE 115; TEMP 36.6; O2SAT 98; BMI 38.0
--- NOTE | 2024-08-25 14:48 | W.ED.NAVMDI ---
HPI - Nausea/Vomiting/Diarrhea General: Chief complaint: Nausea/Vomiting/Diarrhea Stated complaint: v,n Time Seen by Provider: 08/25/24 14:35 Source: patient Mode of arrival: ambulatory Limitations: no limitations History of Present Illness: 33-year-old male states he had a history of vomiting states had issues with vomiting over the last 2 years states has had multiple test including a HIDA scan EGD and colonoscopy. He states he does smoke marijuana states has been having increased vomiting over the last 2 days unable to tolerate any p.o. He has abdominal cramping denies any fever Related Data Home Medications ?Medication ?Instructions ?Recorded ?Confirmed dicyclomine 10 mg capsule 10 mg PO QID PRN ibs 08/25/24 08/25/24 pantoprazole 40 mg tablet,delayed 40 mg PO BID 08/25/24 08/25/24 release Previous Rx's ?Medication ?Instructions ?Recorded ondansetron HCl 8 mg tablet 8 mg PO Q8H PRN nausea and 05/26/24 vomiting #30 tabs buspirone 5 mg tablet 5 mg PO TID #90 tabs 06/19/24 escitalopram oxalate 20 mg tablet 20 mg PO DAILY #30 tabs 07/14/24 lorazepam 0.5 mg tablet 0.5 mg PO DAILY PRN anxiety #20 07/14/24 tabs quetiapine 100 mg tablet 100 mg PO BID #60 tabs 07/14/24 metoclopramide HCl 10 mg tablet 10 mg PO Q6H PRN nausea and 08/25/24 (Reglan) vomiting #20 tabs Allergies Allergy/AdvReac Type Severity Reaction Status Date / Time Alpha-Gal Allergy Mild Unknown Verified 08/25/24 14:32 ([id number],3-Gala [facility] ED [facility]: Medical History Varicose veins with swelling 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 10/20 Irritable bowel syndrome with diarrhea dicyclomine helps 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; resolved; he reports a seizure as presentation 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--just one point above range Nonalcoholic fatty liver disease on CT Hiatal hernia with gastroesophageal reflux hiatal hernia on CT Mood swings Chronic insomnia Generalized anxiety disorder with panic attacks Nausea and vomiting Gastroesophageal reflux disease hiatal hernia on CT Surgical History Hx of colonoscopy 5.1.25 normal Hx of esophagogastroduodenoscopy 5.1.25 normal Family History Grandmother CAD (coronary artery disease) Cancer lung Diabetes Grandfather CAD (coronary artery disease) Cancer Lung disease Stroke Suicide Denies family history of Clotting disorder Dementia Hyperlipidemia Psychiatric illness Chronic kidney disease (CKD) Anesthesia complication Bleeding disorder Family history of premature coronary artery disease Hypertension Social History Smoking and tobacco/nicotine status: former use of tobacco/nicotine Quit status (tobacco/nicotine): has quit using Year quit tobacco: quit cigarettes 222 Alcohol intake: never Substance/Drug Use: current Marital status: Unknown Marital status details: fiance Number of children: 0 Highest education level completed: Some College, No Degree Current occupational status: unemployed Physical Exam Const: COMMON NORMALS: no acute distress, patient oriented x3 and healthy appearing HENMT: COMMON NORMALS: normocephalic and atraumatic HEAD & SCALP: normocephalic and atraumatic Eye: COMMON NORMALS: conjunctivae normal CONJUNCTIVA: Yes conjunctivae normal Neck/C-Spine: COMMON NORMALS: full ROM and supple Chest: COMMONS NORMALS: normal inspection of the chest Resp: COMMON NORMALS: normal respiratory effort, No retractions, No use of accessory muscles and clear to auscultation bilaterally AUSCULTATION: clear to auscultation bilaterally Cardio: COMMON NORMALS: regular rhythm and No murmurs present (Cardio) RATE: tachycardic RHYTHM: regular rhythm GI: COMMON NORMALS: Normal to inspection, nondistended, normoactive bowel sounds present, Soft to palpation, non-tender and no masses PALPATION: Yes Soft to palpation Extremity: COMMON NORMALS: normal to inspection and full ROM Neuro: COMMON NORMALS: patient oriented x3, moves all extremities and no focal motor deficits Psych: COMMON NORMALS: mental status grossly normal, Normal thought process present and cooperative THOUGHT PROCESS: Normal thought process present Skin: COMMON NORMALS: no rashes or lesions noted and no wounds GENERAL SKIN EXAM: no rashes or lesions noted Course Vital Signs: Vital signs: Vital Signs Temperature 97.8 F 08/25/24 14:28 Pulse Rate 114 H 08/25/24 16:34 Blood Pressure 136/100 08/25/24 16:34 Pulse Oximetry 93 08/25/24 16:34 Oxygen Delivery Me thod Room Air 08/25/24 16:34 MDM - Nausea/Vomiting/Diarrhea Medical Decision Making Patient presents here with vomiting likely cyclical vomiting he is well-appearing here he feels much improved after fluids and nausea medicines did have some dehydration able to tolerate p.o. after the Reglan we will prescribe him Reglan for home he is to follow-up with his PCP return if worsening he understands agrees to plan. Medical Records I reviewed the patient's medical records. Lab Data I reviewed the patient's lab results. 08/25/24 14:57 08/25/24 14:57 Laboratory Results WBC 8.49 10^3/uL (3.29-11.43) 08/25/24 14:57 RBC 5.10 10^6/uL (3.85-5.65) 08/25/24 14:57 Hgb 15.60 g/dL (11.27-16.99) 08/25/24 14:57 Hct 46.4 % (37-53) 08/25/24 14:57 MCV 91.0 fl (82-101) 08/25/24 14:57 MCH 30.6 pg (27-33) 08/25/24 14:57 MCHC 33.6 g/dL (30-55) 08/25/24 14:57 RDW 13.2 % (12.1-15.1) 08/25/24 14:57 Plt Count 294 10^3/cmm (157-399) 08/25/24 14:57 MPV 9.1 fL (7.4-10.4) 08/25/24 14:57 Neut % (Auto) 75.8 % 08/25/24 14:57 Lymph % (Auto) 17.3 % 08/25/24 14:57 [place] % (Auto) 5.7 % 08/25/24 14:57 Eos % (Auto) 0.1 % 08/25/24 14:57 Baso % (Auto) 0.7 % 08/25/24 14:57 Neut # (Auto) 6.44 10^3/uL (1.8-7.7) 08/25/24 14:57 Lymph # (Auto) 1.5 10^3/uL (0.8-4.8) 08/25/24 14:57 [place] # (Auto) 0.5 10^3/uL (0.2-0.9) 08/25/24 14:57 Eos # (Auto) 0.0 10^3/uL (0.0-0.8) 08/25/24 14:57 Baso # (Auto) 0.1 10^3/uL (0.0-0.1) 08/25/24 14:57 Nucleated RBC % (auto) 0 % 08/25/24 14:57 Nucleated RBCs # 0.0 /100WBC 08/25/24 14:57 Sodium 146 mmol/L (136-145) H 08/25/24 14:57 Potassium 3.5 mmol/L (3.5-5.1) 08/25/24 14:57 Chloride 102 mmol/L (98-107) 08/25/24 14:57 Carbon Dioxide 12 mmol/L (22-29) L 08/25/24 14:57 Anion Gap 35.5 (5-19) H 08/25/24 14:57 BUN 13 mg/dL (6-20) 08/25/24 14:57 Creatinine 0.8 mg/dL (0.7-1.2) 08/25/24 14:57 GFR Calculation 112.8 mL/min (90-130) 08/25/24 14:57 Glucose 105 mg/dL (65-115) 08/25/24 14:57 Calculated Osmolality 302 mOsm/kg (285-295) H 08/25/24 14:57 Calcium 9.6 mg/dL (8.5-10.5) 08/25/24 14:57 Total Bilirubin 0.4 mg/dL (0.15-1.2) 08/25/24 14:57 AST 48 U/L (0-40) H 08/25/24 14:57 ALT 107 U/L (0-41) H 08/25/24 14:57 Alkaline Phosphatase 92 U/L (40-130) 08/25/24 14:57 Total Protein 8.1 g/dL (6.6-8.7) 08/25/24 14:57 Albumin 5.0 g/dL (3.5-5.2) 08/25/24 14:57 Globulin 3.1 g/dL (1.3-4.6) 08/25/24 14:57 Lipase 20 U/L (13-60) 08/25/24 14:57 No radiology studies performed this visit Discharge Plan Discharge Patient Disposition: Home Clinical Impression: Vomiting Condition: Stable Prescriptions: New metoclopramide HCl [Reglan] 10 mg tablet 10 mg PO Q6H PRN (Reason: nausea and vomiting) Qty: 20 0RF No Action buspirone 5 mg tablet 5 mg PO TID Qty: 90 5RF ondansetron HCl 8 mg tablet 8 mg PO Q8H PRN (Reason: nausea and vomiting) Qty: 30 0RF escitalopram oxalate 20 mg tablet 20 mg PO DAILY Qty: 30 6RF lorazepam 0.5 mg tablet 0.5 mg PO DAILY PRN (Reason: anxiety) Qty: 20 5RF quetiapine 100 mg tablet 100 mg PO BID Qty: 60 5RF pantoprazole 40 mg tablet,delayed release (DR/EC) 40 mg PO BID dicyclomine 10 mg capsule 10 mg PO QID PRN (Reason: ibs) Discharge Orders: Discharge ED (Routine); Ordered 08/25/24 Ordered By: Cady Feldman Referrals: Laura Hernandez MD [Primary Care Provider, Family Practice] - 4-7 days Discharge Diet: Advance as tolerated Discharge Activity: Resume usual activity Patient Instructions: Acute Nausea and Vomiting (ED) Print Language: Tajik Coding Level of Care Code ED Social Work Supervisor for Mitzi Carrizales
[2024-08-25 15:05] LABS: Basophils # 0.1 10^3/uL (0.0-0.1); Basophils % 0.7 %; Eosinophils % 0.1 %; Hematocrit 46.4 % (37-53); Lymphocytes # 1.5 10^3/uL (0.8-4.8); Lymphocytes % 17.3 %; Mean Corpuscular HGB Conc 33.6 g/dL (30-55); Mean Corpuscular Hemoglobin 30.6 pg (27-33); Mean Platelet Volume 9.1 fL (7.4-10.4); Monocytes # 0.5 10^3/uL (0.2-0.9); Monocytes % 5.7 %; Neutrophils # 6.44 10^3/uL (1.8-7.7); Neutrophils % 75.8 %; Nucleated Red Blood Cells % 0 %; Platelet Count 294 10^3/cmm (157-399); Red Cell Distribution Width 13.2 % (12.1-15.1); White Blood Count 8.49 10^3/uL (3.29-11.43)
[2024-08-25] MEDS: sodium chloride 0.9% 1,000 ML 999 ML IV ×2 (15:26→16:32)
[2024-08-25] MEDS: metoclopramide 5 mg/mL SDV 2 mL 10 MG IVP (15:27)
[2024-08-25] MEDS: diphenhydrAMINE 50 mg/mL SDV 1mL IVP (15:28)
[2024-08-25 15:31] LABS: Alanine Aminotransferase 107 U/L (0-41); Alkaline Phosphatase 92 U/L (40-130); Anion Gap 35.5 (5-19); Aspartate Amino Transferase 48 U/L (0-40); Blood Urea Nitrogen 13 mg/dL (6-20); Calcium 9.6 mg/dL (8.5-10.5); Carbon Dioxide 12 mmol/L (22-29); Chloride 102 mmol/L (98-107); Globulin 3.1 g/dL (1.3-4.6); Glomerular Filtration Rate 112.8 mL/min (90-130); Glucose 105 mg/dL (65-115); Lipase 20 U/L (13-60); Osmolality Calculated 302 mOsm/kg (285-295); Potassium 3.5 mmol/L (3.5-5.1); Sodium 146 mmol/L (136-145); Total Bilirubin 0.4 mg/dL (0.15-1.2); Total Protein 8.1 g/dL (6.6-8.7)
[2024-08-25] MEDS: LORazepam 1 MG/0.5 ML injection IVP (16:32)
[2024-08-25 16:34] VITALS: BP 136/100; PULSE 114; O2SAT 93
[2024-08-25 18:00] VITALS: BP 121/76; PULSE 87; O2SAT 94
== END 2024-08-25 18:03 | disposition home or self-care (01) ==
PROVIDERS: Emergency Provider Emergency Medicine; PCP Family Medicine
DX: R11.10 Vomiting, unspecified (principal); Z87.891 Personal history of nicotine dependence
CPT/HCPCS: 36415; 80053; 83690; 85025; 96361; 96374; 96375; 99284; J1200; J2060; J2765; J7030

== ENCOUNTER 2024-09-16 03:42 | Emergency (ER) | payer MEDICAID, SELFPAY ==
[2024-09-16 03:45] VITALS: BP 154/103; PULSE 94; RESP 18; TEMP 36.4; O2SAT 98; BMI 38.0
--- NOTE | 2024-09-16 03:50 | ECG_ITS ---
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 Measurements Intervals [place] Rate: 87 P: 64 VT: 170 QRS: 49 QRSD: 97 T: 42 QT: 371 QTc: 449 Interpretive Statements SINUS RHYTHM Compared to ECG 06/30/2024 17:51:38 Sinus tachycardia no longer present Electronically Signed On 09-18-2024 09:05:20 CDT by Reyes Coe M.D. [email or web address]
--- NOTE | 2024-09-16 04:05 | XRR_ITS ---
PROCEDURE INFORMATION: Exam: XR Chest Exam date and time: 09/16/2024 4:12 AM Age: 34 years old Clinical indication: Pain; Chest pressure TECHNIQUE: Imaging protocol: Radiologic exam of the chest. Views: 1 view. COMPARISON: CR XR chest 1V portable [id number] 06/30/2024 11:56 AM FINDINGS: Lungs: Unremarkable. No consolidation. Pleural spaces: Unremarkable. No pleural effusion. No pneumothorax. Heart/Mediastinum: Unremarkable. No cardiomegaly. Bones/joints: Unremarkable. XR/XR chest 1V portable [id number] IMPRESSION: No acute findings.
[2024-09-16 04:08] VITALS: BP 148/111; PULSE 95; RESP 18; O2SAT 97
[2024-09-16 04:17] LABS: Hematocrit 44.2 % (37-53); Hemoglobin 15.00 g/dL (11.27-16.99); Mean Corpuscular HGB Conc 33.9 g/dL (30-55); Mean Corpuscular Hemoglobin 30.2 pg (27-33); Mean Corpuscular Volume 88.9 fl (82-101); Nucleated Red Blood Cells % 0 %; Platelet Count 280 10^3/cmm (157-399); Red Blood Count 4.97 10^6/uL (3.85-5.65); White Blood Count 9.00 10^3/uL (3.29-11.43)
[2024-09-16] MEDS: metoprolol tartrate 1 mg/1 mL SDV 5 mL 5 MG IVP (04:20)
[2024-09-16] MEDS: LORazepam 1 MG/0.5 ML injection IVP (04:20)
[2024-09-16] MEDS: ondansetron 2 mg/ML SDV 2 mL 8 MG IVP (04:20)
[2024-09-16 04:30] VITALS: BP 135/94; PULSE 68; RESP 18; O2SAT 98
--- NOTE | 2024-09-16 04:35 | W.ED.CHESTPA ---
HPI - Chest Pain General: Chief Complaint: Chest Pain Stated Complaint: Heart Racing\Sob Time Seen by Provider: 09/16/24 03:55 History of Present Illness: 34-year-old male patient presenting with chest pressure, heart racing symptoms, nausea, vomiting. He he woke with the symptoms this morning. He has not had symptoms as significant as this prior. He has had episodes of vomiting prior. He has no personal history of heart disease or problems. He does have a family history. Related Data Home Medications ?Medication ?Instructions ?Recorded ?Confirmed dicyclomine 10 mg capsule 10 mg PO QID PRN ibs 08/25/24 08/25/24 pantoprazole 40 mg tablet,delayed 40 mg PO BID 08/25/24 08/25/24 release Previous Rx's ?Medication ?Instructions ?Recorded buspirone 5 mg tablet 5 mg PO TID #90 tabs 06/19/24 escitalopram oxalate 20 mg tablet 20 mg PO DAILY #30 tabs 07/14/24 lorazepam 0.5 mg tablet 0.5 mg PO DAILY PRN anxiety #20 07/14/24 tabs quetiapine 100 mg tablet 100 mg PO BID #60 tabs 07/14/24 metoclopramide HCl 10 mg tablet 10 mg PO Q6H PRN nausea and 08/25/24 (Reglan) vomiting #20 tabs ondansetron HCl 8 mg tablet 8 mg PO Q8H PRN nausea and 09/16/24 vomiting #20 tabs Allergies Allergy/AdvReac Type Severity Reaction Status Date / Time Alpha-Gal Allergy Mild Unknown Verified 08/25/24 14:32 ([id number],3-Gala [facility]: Medical History Varicose veins with swelling 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 10/20 Irritable bowel syndrome with diarrhea dicyclomine helps 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; resolved; he reports a seizure as presentation 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--just one point above range Nonalcoholic fatty liver disease on CT Hiatal hernia with gastroesophageal reflux hiatal hernia on CT Mood swings Chronic insomnia Generalized anxiety disorder with panic attacks Nausea and vomiting Gastroesophageal reflux disease hiatal hernia on CT Surgical History Hx of colonoscopy 5.1.25 normal Hx of esophagogastroduodenoscopy 5.1.25 normal Family History Grandmother CAD (coronary artery disease) Cancer lung Diabetes Grandfather CAD (coronary artery disease) Cancer Lung disease Stroke Suicide Denies family history of Clotting disorder Dementia Hyperlipidemia Psychiatric illness Chronic kidney disease (CKD) Anesthesia complication Bleeding disorder Family history of premature coronary artery disease Hypertension Social History Smoking and tobacco/nicotine status: former use of tobacco/nicotine Quit status (tobacco/nicotine): has quit using Year quit tobacco: quit cigarettes 222 Alcohol intake: never Substance/Drug Use: current Marital status: Unknown Marital status details: fiance Number of children: 0 Highest education level completed: Some College, No Degree Current occupational status: unemployed Physical Exam Const: GENERAL APPEARANCE: cooperative, anxious and ill appearing (Mildly); not frail appearing HENMT: COMMON NORMALS: normocephalic, atraumatic and Normal external nose present HEAD & SCALP: normocephalic and atraumatic FACE & SINUS: normal facial exam and face symmetric NOSE: Normal external nose present Eye: COMMON NORMALS: Equal, round and reactive pupils present and EOMs intact bilaterally PUPIL: Yes Equal, round and reactive pupils present Neck/C-Spine: GENERAL: Yes trachea midline Chest: CHEST: Yes Symmetrical chest wall rise Resp: COMMON NORMALS: normal respiratory effort, No retractions, No use of accessory muscles and clear to auscultation bilaterally AUSCULTATION: clear to auscultation bilaterally Cardio: COMMON NORMALS: regular rate and regular rhythm RATE: regular rate RHYTHM: regular rhythm GI: COMMON NORMALS: Normal to inspection, nondistended, normoactive bowel sounds present Extremity: COMMON NORMALS: no pedal edema Neuro: MARA COMA SCALE: document GCS findings Mara coma scale eye opening: Spontaneous Mara coma scale verbal response: Orientated [place] coma scale motor response: Obey commands Mara coma scale total score: 15 SENSORY EXAM: Yes extremities (intact) Psych: COMMON NORMALS: speech normal SPEECH: Yes normal speech Skin: COMMON NORMALS: no rashes or lesions noted GENERAL SKIN EXAM: no rashes or lesions noted Course Vital Signs: Vital signs: Vital Signs Temperature 97.6 F 09/16/24 03:45 Pulse Rate 68 09/16/24 04:30 Respiratory Rate 18 09/16/24 04:30 Blood Pressure 135/94 09/16/24 04:30 Pulse Oximetry 98 09/16/24 04:30 Oxygen Delivery Me thod Room Air 09/16/24 04:08 MDM - Chest Pain Medical Decision Making Patient's heart rate is in the 90s he is hypertensive. He is nauseated. He was given Ativan, Zofran, metoprolol. Symptoms greatly improved. His alcohol level is 200. His bicarb level is 12. Potassium is mildly low. This is repleted. He is given 2 L of fluid. He is significantly improved. Lab Data 09/16/24 04:10 09/16/24 04:10 Radiology Impressions Chest X-Ray 09/16/24 04:05 IMPRESSION: No acute findings. Laboratory Results WBC 9.00 10^3/uL (3.29-11.43) 09/16/24 04:10 RBC 4.97 10^6/uL (3.85-5.65) 09/16/24 04:10 Hgb 15.00 g/dL (11.27-16.99) 09/16/24 04:10 Hct 44.2 % (37-53) 09/16/24 04:10 MCV 88.9 fl (82-101) 09/16/24 04:10 MCH 30.2 pg (27-33) 09/16/24 04:10 MCHC 33.9 g/dL (30-55) 09/16/24 04:10 RDW 13.4 % (12.1-15.1) 09/16/24 04:10 Plt Count 280 10^3/cmm (157-399) 09/16/24 04:10 MPV 9.3 fL (7.4-10.4) 09/16/24 04:10 Neut % (Auto) 65.3 % 09/16/24 04:10 Lymph % (Auto) 27.7 % 09/16/24 04:10 [place] % (Auto) 5.0 % 09/16/24 04:10 Eos % (Auto) 0.8 % 09/16/24 04:10 Baso % (Auto) 0.9 % 09/16/24 04:10 Neut # (Auto) 5.88 10^3/uL (1.8-7.7) 09/16/24 04:10 Lymph # (Auto) 2.5 10^3/uL (0.8-4.8) 09/16/24 04:10 [place] # (Auto) 0.5 10^3/uL (0.2-0.9) 09/16/24 04:10 Eos # (Auto) 0.1 10^3/uL (0.0-0.8) 09/16/24 04:10 Baso # (Auto) 0.1 10^3/uL (0.0-0.1) 09/16/24 04:10 Nucleated RBC % (auto) 0 % 09/16/24 04:10 Nucleated RBCs # 0.0 /100WBC 09/16/24 04:10 Sodium 143 mmol/L (136-145) 09/16/24 04:10 Potassium 3.3 mmol/L (3.5-5.1) L 09/16/24 04:10 Chloride 100 mmol/L (98-107) 09/16/24 04:10 Carbon Dioxide 12 mmol/L (22-29) L 09/16/24 04:10 Anion Gap 34.3 (5-19) H 09/16/24 04:10 BUN 11 mg/dL (6-20) 09/16/24 04:10 Creatinine 0.7 mg/dL (0.7-1.2) 09/16/24 04:10 GFR Calculation 130.7 mL/min (90-130) H 09/16/24 04:10 Glucose 80 mg/dL (65-115) 09/16/24 04:10 Calculated Osmolality 294 mOsm/kg (285-295) 09/16/24 04:10 Calcium 9.6 mg/dL (8.5-10.5) 09/16/24 04:10 Total Bilirubin 0.6 mg/dL (0.15-1.2) 09/16/24 04:10 AST 39 U/L (0-40) 09/16/24 04:10 ALT 58 U/L (0-41) H 09/16/24 04:10 Alkaline Phosphatase 88 U/L (40-130) 09/16/24 04:10 Troponin T Baseline < 6 ng/L (0-15) 09/16/24 04:10 NT-Pro-B Natriuret Pep < 36 pg/mL (0-125) 09/16/24 04:10 Total Protein 7.3 g/dL (6.6-8.7) 09/16/24 04:10 Albumin 4.9 g/dL (3.5-5.2) 09/16/24 04:10 Globulin 2.4 g/dL (1.3-4.6) 09/16/24 04:10 Lipase 23 U/L (13-60) 09/16/24 04:10 TSH 0.32 uIU/mL (0.27-4.20) 09/16/24 04:10 Ethyl Alcohol 198 mg/dL (0-10) H 09/16/24 04:10 All radiology interpretation(s) finalized by discharge Discharge Plan Discharge Patient Disposition: Home Clinical Impression: Acute dehydration Condition: Stable Prescriptions: Continued ondansetron HCl 8 mg tablet 8 mg PO Q8H PRN (Reason: nausea and vomiting) Qty: 20 0RF No Action buspirone 5 mg tablet 5 mg PO TID Qty: 90 5RF escitalopram oxalate 20 mg tablet 20 mg PO DAILY Qty: 30 6RF lorazepam 0.5 mg tablet 0.5 mg PO DAILY PRN (Reason: anxiety) Qty: 20 5RF quetiapine 100 mg tablet 100 mg PO BID Qty: 60 5RF pantoprazole 40 mg tablet,delayed release (DR/EC) 40 mg PO BID dicyclomine 10 mg capsule 10 mg PO QID PRN (Reason: ibs) metoclopramide HCl [Reglan] 10 mg tablet 10 mg PO Q6H PRN (Reason: nausea and vomiting) Qty: 20 0RF Discharge Orders: Discharge ED (Routine); Ordered 09/16/24 Ordered By: Lemuel Mckeon Referrals: Laura Hernandez MD [Primary Care Provider, Family Practice] - 4-7 days Patient Instructions: Dehydration (ED), Opioid Safety, Pain Management, Patient Portal & [place] Instructions Activity Restrictions/Additional Instructions: Stay in a cool environment for the next 48 hours. Plenty of clear liquids. Avoid alcohol. It can worsen dehydration. Return for problems. Use nausea medication as needed. Print Language: Faroese Coding Level of Care Code ED Restaurant Area Director for Mitzi Carrizales
[2024-09-16 04:37] LABS: Troponin(5th) Baseline < 6 ng/L (0-15)
[2024-09-16 04:47] LABS: Alanine Aminotransferase 58 U/L (0-41); Albumin Level 4.9 g/dL (3.5-5.2); Alcohol Level 198 mg/dL (0-10); Alkaline Phosphatase 88 U/L (40-130); Anion Gap 34.3 (5-19); Aspartate Amino Transferase 39 U/L (0-40); Blood Urea Nitrogen 11 mg/dL (6-20); Calcium 9.6 mg/dL (8.5-10.5); Carbon Dioxide 12 mmol/L (22-29); Chloride 100 mmol/L (98-107); Creatinine Clr Calc Pharmacy 208.6337; Globulin 2.4 g/dL (1.3-4.6); Glucose 80 mg/dL (65-115); Lipase 23 U/L (13-60); NT Pro B Type Natriuretic Pept < 36 pg/mL (0-125); Osmolality Calculated 294 mOsm/kg (285-295); Potassium 3.3 mmol/L (3.5-5.1); Sodium 143 mmol/L (136-145); Thyroid Stimulating Hormone 0.32 uIU/mL (0.27-4.20); Total Protein 7.3 g/dL (6.6-8.7)
[2024-09-16 06:49] VITALS: BP 123/90; PULSE 78; RESP 16; O2SAT 98
== END 2024-09-16 06:50 | disposition home or self-care (01) ==
PROVIDERS: Emergency Provider Emergency Medicine; PCP Family Medicine
DX: E86.0 Dehydration (principal); Z87.891 Personal history of nicotine dependence
CPT/HCPCS: 36415; 71045; 80053; 80307; 83690; 83880; 84443; 84484; 85025; 93005; 96361; 96374; 96375; 99285; J2060; J2405; J3490; J7030

== ENCOUNTER 2024-12-02 17:52 | Emergency (ER) | payer MEDICAID, SELFPAY ==
[2024-12-02 17:56] VITALS: BP 123/83; PULSE 75; TEMP 36.4; O2SAT 100
--- NOTE | 2024-12-02 18:40 | ED_ITS ---
HPI - Nausea/Vomiting/Diarrhea 2 General: Chief complaint: Nausea/Vomiting/Diarrhea Stated complaint: Coming Down from a ABS Attack Time Seen by Provider: 12/02/24 18:03 Source: patient Mode of arrival: ambulatory Limitations: no limitations History of Present Illness: Patient is a 34-year-old male with past medical history of auto brewery syndrome who presents to the emergency department stating that he thinks he is having a flareup. Notes that yesterday he believes he ate something containing carbs, and he had the sudden onset of nausea, diaphoresis, diffuse bodyaches and chills. No fevers reported. States that he has been established with gastroenterology but has not followed up with them as he states he is afraid to do the testing where he knowingly consumes carbohydrates to see if he has intact. He states that he has adjusted his diet to not include carbs and has had no flareups so this is why he believes he has auto brewery syndrome. Denies any ingestion of alcohol, states he has not drank in 2 weeks. No other drug use reported. His vitals are stable at this time though he is diaphoretic and mildly ill-appearing. MD elicited complaint: nausea Pertinent past history: other (ABS) Onset (ago): day(s) Associated nausea: Yes Associated symtoms: Reports diaphoresis, fatigue, malaise and nausea; Denies chest pain, dizziness, dysuria, headache(s) or palpitations Related Data Home Medications ?Medication ?Instructions ?Recorded ?Confirmed dicyclomine 10 mg capsule 10 mg PO QID PRN ibs 5 10/16/24 Previous Rx's ?Medication ?Instructions ?Recorded buspirone 5 mg tablet 5 mg PO TID #90 tabs 5 escitalopram oxalate 20 mg tablet 20 mg PO DAILY #30 t abs 07/14/24 lorazepam 0.5 mg tablet 0.5 mg PO DAILY PRN anxiety #20 07/14/24 tabs quetiapine 100 mg tablet 100 mg PO BID #60 tabs 07/14 metoclopramide HCl 10 mg tablet 10 mg PO Q6H PRN nause a and 08/25/24 (Reglan) vomiting #20 tabs ondansetron HCl 8 mg tablet 8 mg PO Q8H PRN nausea and 09/16/24 vomiting #20 tabs tirzepatide (weight loss) 2.5 2.5 mg (0.5 mL) SUBCUT . qwk #2 mL 09/22/24 mg/0.5 mL subcutaneous pen injector (Zepbound) tirzepatide (weight loss) 5 mg/0.5 5 mg (0.5 mL) SUBCU T .qwk #2 mL 10/16/24 mL subcutaneous pen injector (Zepbound) pantoprazole 40 mg tablet,delayed See Rx Instructions .Route 10/25/24 release .COMPLEX #60 tabs Allergies Allergy/AdvReac Type Severity Reaction Status Date / Time Alpha-Gal Allergy Mild Unknown Verified 12/02/24 18:01 ([id number],3-Gala Review of Systems 2 General: Reports: 10 or more systems reviewed and unremarkable except in HPI and below Const: Reports: chills, fatigue, malaise and diaphoresis; Denies: fever(s), change in appetite or change in weight ENMT: Denies: throat pain or hoarseness Card: Denies: chest pain, palpitations or lightheadedness Resp: Denies: dyspnea, productive cough or wheezing GI: Reports: nausea; Denies: vomiting or diarrhea : Denies: flank pain, difficulty urinating, dysuria, urinary frequency or urinary urgency Musc: Denies: neck pain or back pain Skin/Breast: Denies: rash or new lesions Neuro: Denies: headache(s) or dizziness PFSH ED 2 PFSH: Medical History Auto-brewery syndrome Class 2 severe obesity due to excess calories with serious comorbidity and body mass index (BMI) of 36.0 to 36.9 in adult Varicose veins with swelling 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 10/20 Irritable bowel syndrome with diarrhea dicyclomine helps 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; resolved; he reports a seizure as presentation 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--just one point above range Nonalcoholic fatty liver disease on CT Hiatal hernia with gastroesophageal reflux hiatal hernia on CT Mood swings Chronic insomnia Generalized anxiety disorder with panic attacks Nausea and vomiting Gastroesophageal reflux disease hiatal hernia on CT Surgical History Hx of colonoscopy 5.1.25 normal Hx of esophagogastroduodenoscopy 5.1.25 normal Family History Grandmother CAD (coronary artery disease) Cancer lung Diabetes Grandfather CAD (coronary artery disease) Cancer Lung disease Stroke Suicide Denies family history of Clotting disorder Dementia Hyperlipidemia Psychiatric illness Chronic kidney disease (CKD) Anesthesia complication Bleeding disorder Family history of premature coronary artery disease Hypertension Social History Smoking and tobacco/nicotine status: former use of tobacco/nicotine Quit status (tobacco/nicotine): has quit using Year quit tobacco: quit cigarettes 222 Alcohol intake: never Substance/Drug Use: current Marital status: Unknown Marital status details: fiance Number of children: 0 Highest education level completed: Some College, No Degree Current occupational status: unemployed Physical Exam 2 Const: COMMON NORMALS: patient oriented x3, no limitations and well nourished GENERAL APPEARANCE: cooperative NUTRITIONAL APPEARANCE: obese O RIENTATION/CONSCIOUSNESS: Yes awake OTHER: diaphoretic, ill appearing Neck/C-Spine: COMMON NORMALS: full ROM, supple, no meningeal signs and no JVD Resp: COMMON NORMALS: normal respiratory effort, No retractions, No use of accessory muscles and clear to auscultation bilaterally AUSCULTATION: clear to auscultation bilaterally, no crackles, no rales, no rhonchi and no wheezes Cardio: COMMON NORMALS: no JVD, regular rate, regular rhythm, No gallops present (Cardio), No clicks present (Cardio), No murmurs present (Cardio), No rub (Cardio) and Peripheral pulses 2+ throughout RATE: regular rate R HYTHM: regular rhythm PERIPHERAL PULSES: Peripheral pulses 2+ throughout GI: COMMON NORMALS: Normal to inspection, nondistended, normoactive bowel sounds present, Soft to palpation, non-tender, No hepatosplenomegaly present and no masses AUSCULTATION: Yes normoactive bowel sounds PALPATION: Yes Soft to palpation, No Guarding due to palpation present (GI), No Rigid due to palpation and Yes No hepatosplenomegaly present RECTAL EXAM: Yes deferred Extremity: COMMON NORMALS: normal to inspection and full ROM Neuro: COMMON NORMALS: patient oriented x3, moves all extremities, no focal motor deficits and no sensory deficits noted MENINGEAL SIGNS: Yes no meningeal signs Psych: COMMON NORMALS: mental status grossly normal, cooperative and speech normal SPEECH: Yes normal speech Skin: COMMON NORMALS: no rashes or lesions noted GENERAL SKIN EXAM: no rashes or lesions noted Course 2 Vital Signs: Vital signs: Vital Signs Temperature 97.6 F 12/02/24 17:56 Pulse Rate 80 12/02/24 21:13 Blood Pressure 111/67 12/02/24 21:13 Pulse Oximetry 98 12/02/24 21:13 Oxygen Delivery Me thod Room Air 12/02/24 21:13 MDM - Nausea/Vomiting/Diarrhea Medical Decision Making Patient reports to me a history of auto brewery syndrome, has been seen here in the emergency department the past for flareups. States that he did consume carbohydrates yesterday and felt symptoms then but today they got much worse. He has never followed up with gastroenterology, he has significant improvement in symptoms here after IV fluids and nausea medication and Ativan, his vitals have been stable and lab work is all reassuring. Do not suspect any acute emergent process and though this could be artery syndrome flareup he has never had this officially diagnosed so I will refer him to gastroenterology. He is stable for discharge home at this time. His ethyl alcohol level is negative. Lab Data 12/02/24 18:53 12/02/24 18:53 Laboratory Results WBC 11.19 10^3/uL (3.29-11.43) 12/02/24 18:53 RBC 4.89 10^6/uL (3.85-5.65) 12/02/24 18:53 Hgb 14.70 g/dL (11.27-16.99) 12/02/24 18:53 Hct 42.9 % (37-53) 12/02/24 18:53 MCV 87.7 fl (82-101) 12/02/24 18:53 MCH 30.1 pg (27-33) 12/02/24 18:53 MCHC 34.3 g/dL (30-55) 12/02/24 18:53 RDW 12.8 % (12.1-15.1) 12/02/24 18:53 Plt Count 284 10^3/cmm (157-399) 12/02/24 18:53 MPV 9.6 fL (7.4-10.4) 12/02/24 18:53 Neut % (Auto) 69.4 % 12/02/24 18:53 Lymph % (Auto) 20.9 % 12/02/24 18:53 [place] % (Auto) 7.7 % 12/02/24 18:53 Eos % (Auto) 0.9 % 12/02/24 18:53 Baso % (Auto) 0.6 % 12/02/24 18:53 Neut # (Auto) 7.76 10^3/uL (1.8-7.7) H 12/02/24 18:53 Lymph # (Auto) 2.3 10^3/uL (0.8-4.8) 12/02/24 18:53 [place] # (Auto) 0.9 10^3/uL (0.2-0.9) 12/02/24 18:53 Eos # (Auto) 0.1 10^3/uL (0.0-0.8) 12/02/24 18:53 Baso # (Auto) 0.1 10^3/uL (0.0-0.1) 12/02/24 18:53 Nucleated RBC % (auto) 0 % 12/02/24 18:53 Nucleated RBCs # 0.0 /100WBC 12/02/24 18:53 Sodium 140 mmol/L (136-145) 12/02/24 18:53 Potassium 3.3 mmol/L (3.5-5.1) L 12/02/24 18:53 Chloride 103 mmol/L (98-107) 12/02/24 18:53 Carbon Dioxide 13 mmol/L (22-29) L 12/02/24 18:53 Anion Gap 27.3 (5-19) H 12/02/24 18:53 BUN 16 mg/dL (6-20) 12/02/24 18:53 Creatinine 1.0 mg/dL (0.7-1.2) 12/02/24 18:53 GFR Calculation 86.6 mL/min (90-130) L 12/02/24 18:53 Glucose 116 mg/dL (65-115) H 12/02/24 18:53 Calculated Osmolality 292 mOsm/kg (285-295) 12/02/24 18:53 Calcium 9.9 mg/dL (8.5-10.5) 12/02/24 18:53 Total Bilirubin 0.6 mg/dL (0.15-1.2) 12/02/24 18:53 AST 22 U/L (0-40) 12/02/24 18:53 ALT 22 U/L (0-41) 12/02/24 18:53 Alkaline Phosphatase 67 U/L (40-130) 12/02/24 18:53 Total Protein 7.6 g/dL (6.6-8.7) 12/02/24 18:53 Albumin 4.8 g/dL (3.5-5.2) 12/02/24 18:53 Globulin 2.8 g/dL (1.3-4.6) 12/02/24 18:53 Urine Color Yellow (Yellow) 12/02/24 21:13 Urine Appearance Clear (CLEAR) 12/02/24 21:13 Urine pH 7.5 (5-7) 12/02/24 21:13 Ur Specific [place] 1.033 (1.005-1.030) H 12/02/24 21:13 Urine Protein 1+ (Negative) A 12/02/24 21:13 Urine Glucose (UA) Negative (Normal) 12/02/24 21:13 Urine Ketones 4+ (Negative) 12/02/24 21:13 Urine Blood Negative (Negative) 12/02/24 21:13 Urine Nitrate Negative (Negative) 12/02/24 21:13 Urine Bilirubin Negative (Negative) 12/02/24 21:13 Urine Urobilinogen 1.0 mg/dL (Negative) 12/02/24 21:13 Ur Leukocyte Esterase Negative (Negative) 12/02/24 21:13 Urine RBC None /hpf (0-2) 12/02/24 21:13 Urine WBC 0-4 /hpf (0-5) H 12/02/24 21:13 Ur Squamous Epith Cells Rare /hpf (0-5) 12/02/24 21:13 Amorphous Sediment Not Reportable 12/02/24 21:13 Urine Bacteria Trace /hpf (NONE) 12/02/24 21:13 Urine Mucus 2+ /hpf 12/02/24 21:13 Urine Opiates Screen Negative ng/mL (Negative) 12/02/24 21:13 Ur Barbiturates Screen Negative ng/mL (Negative) 12/02/24 21:13 Ur Phencyclidine Scrn Negative ng/mL (Negative) 12/02/24 21:13 Ur Amphetamines Screen Negative ng/mL (Negative) 12/02/24 21:13 U Benzodiazepines Scrn Positive ng/mL (Negative) H 12/02/24 21:13 Urine Cocaine Screen Negative ng/mL (Negative) 12/02/24 21:13 U Marijuana (THC) Screen Positive ng/mL (Negative) H 12/02/24 21:13 Ethyl Alcohol < 10 mg/dL (0-10) 12/02/24 18:53 No radiology studies performed this visit Discharge Plan Discharge Patient Disposition: Home Clinical Impression: Auto-brewery syndrome, Dehydration Nausea and vomiting Qualifiers: Vomiting type: unspecified Qualified Code(s): R11.2 - Nausea with vomiting, unspecified Condition: Stable Prescriptions: No Action buspirone 5 mg tablet 5 mg PO TID Qty: 90 5RF Zepbound 5 mg/0.5 mL pen injector 5 mg SUBCUT .qwk Qty: 2 3RF Zepbound 2.5 mg/0.5 mL pen injector 2.5 mg SUBCUT .qwk Qty: 2 0RF escitalopram oxalate 20 mg tablet 20 mg PO DAILY Qty: 30 6RF lorazepam 0.5 mg tablet 0.5 mg PO DAILY PRN (Reason: anxiety) Qty: 20 5RF quetiapine 100 mg tablet 100 mg PO BID Qty: 60 5RF pantoprazole 40 mg tablet,delayed release (DR/EC) See Rx Instructions .ROUTE .COMPLEX Qty: 60 1RF Dose Instruction: Take 1 tablet by mouth twice daily Rx Instructions: Take 1 tablet by mouth twice daily dicyclomine 10 mg capsule 10 mg PO QID PRN (Reason: ibs) metoclopramide HCl [Reglan] 10 mg tablet 10 mg PO Q6H PRN (Reason: nausea and vomiting) Qty: 20 0RF ondansetron HCl 8 mg tablet 8 mg PO Q8H PRN (Reason: nausea and vomiting) Qty: 20 0RF Discharge Orders: Discharge ED (Routine); Ordered 12/02/24 Ordered By: Kaushik Miguel Referrals: Laura Hernandez MD [Primary Care Provider, Family Practice] Patient Instructions: Patient Portal & [place] Instructions Activity Restrictions/Additional Instructions: Auto-Brewery Syndrome Discharge You were treated in the emergency department for dehydration related to auto- brewery syndrome, a rare condition where your body makes alcohol after eating carbohydrates, even if you do not drink alcohol. You received fluids and are now feeling better. What to do at home: - Limit carbohydrates: Avoid foods and drinks high in sugar and starch (like bread, pasta, rice, potatoes, sweets, and sugary drinks), as these can trigger your symptoms. - Stay hydrated: Drink plenty of water. Oral rehydration solutions (like Pedialyte) are safe and help replace fluids and salts lost during dehydration. Avoid drinks like apple juice, Gatorade, and sodas for rehydration. - Eat a balanced diet: Focus on lean proteins, vegetables, and healthy fats. You may slowly reintroduce carbohydrates only if advised by your specialist. - Take probiotics if recommended: Some patients benefit from probiotics, which may help balance gut bacteria, but discuss this with your pantry goods worker. - Watch for symptoms: If you feel dizzy, confused, have slurred speech, or any signs of intoxication, seek medical help right away. - Follow up: An appointment with a pantry goods worker will be scheduled to help manage your condition and discuss further treatment options. When to seek help: - Severe dehydration (very dry mouth, little or no urine, feeling faint) - Signs of alcohol intoxication (confusion, trouble walking, slurred speech) - New or worsening symptoms Other important notes: - Do not drive or operate heavy machinery if you feel unwell or have symptoms of intoxication. - Share information about your condition with close contacts, as auto-brewery syndrome can be misunderstood. If you have any questions or concerns, contact your healthcare provider. Print Language: Turkmen Coding Level of Care Code ED Ingot Car Operator for Mitzi Carrizales
[2024-12-02 18:59] LABS: Hematocrit 42.9 % (37-53); Hemoglobin 14.70 g/dL (11.27-16.99); Mean Corpuscular HGB Conc 34.3 g/dL (30-55); Mean Corpuscular Hemoglobin 30.1 pg (27-33); Mean Corpuscular Volume 87.7 fl (82-101); Nucleated Red Blood Cells % 0 %; Platelet Count 284 10^3/cmm (157-399); Red Blood Count 4.89 10^6/uL (3.85-5.65); White Blood Count 11.19 10^3/uL (3.29-11.43)
[2024-12-02] MEDS: LORazepam 1 MG/0.5 ML injection IVP (19:00)
[2024-12-02] MEDS: ondansetron 2 mg/ML SDV 2 mL 4 MG IVP (19:00)
[2024-12-02 19:01] VITALS: BP 137/81; PULSE 92; O2SAT 99
[2024-12-02 19:17] LABS: Alanine Aminotransferase 22 U/L (0-41); Albumin Level 4.8 g/dL (3.5-5.2); Alkaline Phosphatase 67 U/L (40-130); Anion Gap 27.3 (5-19); Aspartate Amino Transferase 22 U/L (0-40); Blood Urea Nitrogen 16 mg/dL (6-20); Calcium 9.9 mg/dL (8.5-10.5); Carbon Dioxide 13 mmol/L (22-29); Chloride 103 mmol/L (98-107); Globulin 2.8 g/dL (1.3-4.6); Glucose 116 mg/dL (65-115); Osmolality Calculated 292 mOsm/kg (285-295); Potassium 3.3 mmol/L (3.5-5.1); Sodium 140 mmol/L (136-145); Total Protein 7.6 g/dL (6.6-8.7)
[2024-12-02 19:24] LABS: Alcohol Level < 10 mg/dL (0-10)
[2024-12-02 20:10] VITALS: BP 103/57; PULSE 90; O2SAT 97
[2024-12-02 21:13] VITALS: BP 111/67; PULSE 80; O2SAT 98
[2024-12-02 21:21] LABS: Glucose Urine UA Negative (Normal); Nitrate Urine Negative (Negative)
[2024-12-02 21:28] LABS: PCP Screen Urine Negative (Negative)
[2024-12-02 21:50] LABS: Specific Gravity, Urine 1.033 (1.005-1.030); UA Manual Slide Review YES
[2024-12-02 21:51] LABS: Add Urine Microscopic? YES
--- NOTE | 2024-12-04 08:53 | DCPLANNER ---
faxed gi referral to harjinder veliz
== END 2024-12-02 23:00 | disposition home or self-care (01) ==
PROVIDERS: Emergency Provider Physician Assistant; PCP Family Medicine
DX: K92.89 Other specified diseases of the digestive system (principal); R11.2 Nausea with vomiting, unspecified; Z87.891 Personal history of nicotine dependence
CPT/HCPCS: 36415; 80053; 80306; 80307; 81001; 85025; 96361; 96374; 96375; 99284; J2060; J2405; J7030